=== PATIENT | male | born 1955 | race Caucasian/White ===

== ENCOUNTER → 2019-10-29 12:22 | Outpatient (CLI) | payer MEDICARE, OTHER, SELFPAY ==
--- NOTE | 2019-10-29 | DI.MRI.S_ITS ---
PROCEDURE: MR SHOULDER RT WO CON INDICATIONS: R/O rotator cuff tears TECHNIQUE: Noncontrast oblique coronal T2 fast spin echo with fat saturation, oblique sagittal T1 spin echo and T2 fast spin echo with fat saturation, axial T1 spin echo and T2 fast spin echo with fat saturation through the shoulder. COMPARISON: [facility], CR, XR SHOULDER 2+ VIEWS BILATERAL, 10/02/2017, 10:05. FINDINGS: Image quality: Diagnostic. Rotator cuff: The supraspinatus tendon is completely torn. The transverse portion of this tear measures at least 3.7 cm in transverse dimension with retraction of the torn tendon fragments to the acromioclavicular joint level by approximately 4.2 cm. There is prominent increased signal and thickening involving the infraspinatus and subscapularis tendons with low to moderate grade partial-thickness tearing. The teres minor tendon is intact. There is prominent supraspinatus atrophy. Moderate infraspinatus and subscapularis muscle atrophy is present. The teres minor muscle is unremarkable. Bones and bursae: No acute fracture or dislocation is identified involving the osseous structures of the right shoulder. There are mild degenerative changes of the glenohumeral joint. Severe degenerative changes of the acromioclavicular joint are present. There is a glenohumeral joint effusion with fluid extending into the subacromial subdeltoid bursa. Capsule and soft tissues: Evaluation of the labrum and the glenohumeral ligaments is suboptimal without intra-articular contrast. However, there is increased signal identified along the superior aspect of the labrum with the tear that extends from the 10 o'clock position to the 2 o'clock position. No large paralabral cysts are evident. The lung head of the biceps tendon is thickened and edematous at the biceps anchor with probable intrasubstance partial thickness tearing. No acute injuries are suspected involving the glenohumeral ligaments. There is increased signal about the rotator capsule. There is increased signal identified involving the lateral margin of the proximal deltoid muscle with fluid extending along the myotendinous junction within this region. IMPRESSION: 1. Complete supraspinatus tendon tear. 2. The moderate grade partial-thickness tearing and prominent tendinopathy of the subscapularis and infraspinatus tendons. 3. Rotator cuff muscle atrophy. 4. Small to moderate-sized superior labral tear probably involves the biceps anchor. 5. Moderate tendinopathy with probable intrasubstance partial thickness tearing involving the intra-articular portion of the biceps tendon. 6. Edema about the glenohumeral joint capsule is nonspecific, but may be seen in the setting of adhesive capsulitis. 7. Deltoid muscle strain and possible intramuscular partial-thickness tear. 8. A glenohumeral joint effusion. 9. Advanced degenerative changes of the acromioclavicular joint. Dictated by: Rodríguez Juárez M.D. on 10/31/2019 at 15:11 Approved by: Rodríguez Juárez M.D. on 10/31/2019 at 15:15
--- NOTE | 2019-10-29 | DI.MRI.S_ITS ---
PROCEDURE: MR SHOULDER LT WO CON INDICATIONS: R/O rotator cuff tears TECHNIQUE: Noncontrast oblique coronal T2 fast spin echo with fat saturation, oblique sagittal T1 spin echo and T2 fast spin echo with fat saturation, axial T1 spin echo and T2 fast spin echo with fat saturation through the shoulder. COMPARISON: None. FINDINGS: Image quality: Excellent. Rotator cuff: There is mild diffuse T2 signal elevation throughout the supraspinatus tendon at the humeral insertion site. There is a superimposed low-grade partial-thickness intrasubstance tear of the anterior supraspinatus tendon at the humeral insertion site. There is a superimposed full-thickness pinhole tear of the mid supraspinatus tendon at the humeral insertion site measuring roughly 2 mm diameter. There is high-grade fluid signal intensity within the articular surface of the anterior, middle, and posterior precipitous tendon at the humeral insertion site extend into the muscle tendinous junction, indicating high-grade partial thickness articular surface tearing. Subscapularis and teres minor tendons are intact. The supraspinatus, infraspinatus, and subscapularis tendons appear intact throughout. Sagittal images demonstrate mild supraspinatus muscle atrophy. Bones and bursae: No bone marrow contusions or fractures. No acromioclavicular joint degeneration. The acromion demonstrates conventional anatomy, without an os acromiale. No pathologic subacromial-subdeltoid or subcoracoid bursal fluid is present. Capsule and soft tissues: Linear high T2 signal intensity traverses the posterior superior glenoid labrum. The long head of the biceps tendon demonstrates normal location and morphology. The rotator interval appears normal, without fibrosis. The coracohumeral ligament is normal in thickness. IMPRESSION: 1. Supraspinatus and infraspinatus tendinopathy. 2. Full-thickness pinhole tear of the mid supraspinatus tendon at the humeral insertion site. 3. High-grade partial thickness articular surface tearing of the entire infraspinatus tendon at the humeral insertion site extending to the musculotendinous junction. Mild supraspinatous atrophy. 4. Posterior superior glenoid labral tearing. 5. Acromioclavicular joint osteoarthritis. Dictated by: Makayla Velasco M.D. on 10/31/2019 at 9:50 Approved by: Makayla Velasco M.D. on 10/31/2019 at 9:54
== END ==
PROVIDERS: PCP Internal Medicine Cardiovascular Disease; Referring Provider Orthopaedic Surgery; Visit Provider Orthopaedic Surgery
DX: M75.40 Impingement syndrome of unspecified shoulder (principal); M75.112 Incomplete rotator cuff tear or rupture of left shoulder, not specified as traumatic; M75.121 Complete rotator cuff tear or rupture of right shoulder, not specified as traumatic; S43.432A Superior glenoid labrum lesion of left shoulder, initial encounter; S43.431A Superior glenoid labrum lesion of right shoulder, initial encounter; S46.811A Strain of other muscles, fascia and tendons at shoulder and upper arm level, right arm, initial encounter; M25.411 Effusion, right shoulder; M19.012 Primary osteoarthritis, left shoulder
CPT/HCPCS: 73221

== ENCOUNTER → 2020-12-24 13:15 | Outpatient (CLI) | payer MEDICARE, OTHER, SELFPAY ==
--- NOTE | 2020-12-24 | DI.MRI.S_ITS ---
PROCEDURE: MR SHOULDER RT WO CON INDICATIONS: Unspecified disorder of synovium and tendon, right TECHNIQUE: Noncontrast oblique coronal T2 fast spin echo with fat saturation, oblique sagittal T1 spin echo and T2 fast spin echo with fat saturation, axial T1 spin echo and T2 fast spin echo with fat saturation through the shoulder. COMPARISON: [facility], MR, MR SHOULDER RT WO CON, 10/29/2019, 13:06. FINDINGS: Image quality: Excellent. Rotator cuff: There is full-thickness rupture of distal supraspinatus and infraspinatus at their insertion on humeral head with up to 4.7 centimeter medial retraction of torn tendon fibers to the level of glenoid. Tendinosis and low to moderate grade partial-thickness tear involving distal subscapularis is seen. Sagittal images demonstrate moderate to severe supraspinatus and infraspinatus muscle atrophy. Bones and bursae: No bone marrow contusions or fractures. Moderate osteoarthritic changes are noted in acromioclavicular joint and glenohumeral joint. Large amount of subacromial subdeltoid bursal fluid is seen. No gross intra-articular loose body. Capsule and soft tissues: There is suggestion of focal superior anterior labral tear at 12 to 1 o'clock position. Degenerative changes in inferior labrum is seen without definite focal inferior labral tear. The long head of the biceps tendon demonstrates normal location and morphology. The rotator interval appears normal, without fibrosis. The coracohumeral ligament is normal in thickness. IMPRESSION: 1. Full-thickness rupture of distal supraspinatus and infraspinatus at their insertion on the humeral head with up to 4.7 cm medial retraction of torn tendon fibers to the level of the glenoid. Moderate to severe supraspinatus and infraspinatus muscle atrophy. Tendinosis and low to moderate grade intrasubstance partial-thickness tear involving distal subscapularis. 2. Moderate acromioclavicular joint and glenohumeral joint osteoarthritis. Moderate to large amount of joint effusion and subacromial subdeltoid bursal fluid. 3. Suggestion of focal superior anterior labral tear at 12 to 1 o'clock position. Degenerative changes throughout inferior labrum. Dictated by: Kwabena Rogers M.D. on 12/24/2020 at 14:52 Approved by: Kwabena Rogers M.D. on 12/24/2020 at 14:58
== END ==
PROVIDERS: PCP Family Medicine; Referring Provider Orthopaedic Surgery; Visit Provider Orthopaedic Surgery
DX: M75.121 Complete rotator cuff tear or rupture of right shoulder, not specified as traumatic (principal); M19.011 Primary osteoarthritis, right shoulder; M25.411 Effusion, right shoulder
CPT/HCPCS: 73221

== ENCOUNTER → 2021-09-02 09:40 | Outpatient (CLI) | payer MEDICARE, OTHER, SELFPAY ==
[2021-09-02 10:15] LABS: Add Manual Diff / Slide Review NO; Basophils Absolute Auto 100 /uL (0-100); Basophils Percent Auto 1.2 % (0-2); Eosinophils Absolute Auto 300 /uL (0-450); Eosinophils Percent Auto 5.9 % (2-4); Hematocrit 44.4 % (41-53); Hemoglobin 15.5 g/dL (13.5-17.5); Lymphocytes Absolute Auto 2400 /uL (1100-4500); Lymphocytes Percent Auto 42.1 % (25-40); Mean Corpuscular Hemoglobin 34.1 PG (26-34); Mean Corpuscular Volume 97.4 fL (80-100); Monocytes Absolute Auto 500 /uL (0-900); Monocytes Percent Auto 9.7 % (3-14); Neutrophils Absolute Auto 2300 /uL (1500-7000); Neutrophils Percent Auto 41.1 % (50-75); Platelet Count 186 X10^3/uL (150-400); Red Blood Cell Count 4.56 X10^6/uL (4.5-5.9); Red Cell Distribution Width 13.3 % (11.6-14.8); White Blood Cell Count 5.6 X10^3/uL (4.5-11.0)
[2021-09-02 10:47] LABS: Hemoglobin A1C% w Est Avg Glu 5.7 % (4.0-6.0)
[2021-09-02 11:10] LABS: Blood Urea Nitrogen 15 mg/dL (9-20); Calcium 9.9 mg/dL (8.4-10.2); Carbon Dioxide 29 mmol/L (22-32); Chloride 105 mmol/L (98-107); Estimated Glomerular Filt Rate > 60.0 mL/min (>60); Glucose 116 mg/dL (80-110); HEMOLYSIS < 15 (0-50); Sodium 141 mmol/L (137-145)
== END ==
PROVIDERS: PCP Family Medicine; Referring Provider Orthopaedic Surgery; Visit Provider Orthopaedic Surgery
DX: Z01.818 Encounter for other preprocedural examination (principal); R73.9 Hyperglycemia, unspecified; M25.562 Pain in left knee
CPT/HCPCS: 36415; 80048; 83036; 85025; 93005; 93010

== ENCOUNTER → 2021-09-20 09:25 | Outpatient (CLI) | payer MEDICARE, OTHER, SELFPAY ==
[2021-09-20 11:56] LABS: COVID19 -Nasal RAPID Negative (Negative)
== END ==
PROVIDERS: PCP Family Medicine; Visit Provider Physician Assistant
DX: Z01.812 Encounter for preprocedural laboratory examination (principal); Z20.822 Contact with and (suspected) exposure to COVID-19
CPT/HCPCS: 87635; C9803

== ENCOUNTER → 2021-10-02 09:25 | Outpatient (CLI) | payer MEDICARE, OTHER, SELFPAY ==
[2021-10-02 12:53] LABS: COVID19 -Nasal RAPID Negative (Negative)
== END ==
PROVIDERS: PCP Family Medicine; Visit Provider Nurse Practitioner Family
DX: Z01.812 Encounter for preprocedural laboratory examination (principal); Z20.822 Contact with and (suspected) exposure to COVID-19
CPT/HCPCS: 87635; C9803

== ENCOUNTER 2021-10-04 05:47 | Day surgery (SDC) | payer MEDICARE, OTHER, SELFPAY ==
[2021-09-16 09:57] VITALS: BMI 33.3
--- NOTE | 2021-09-23 11:05 | SUR.PREOP ---
Due to HVAC issues and the late timing of events, Pt has decided to cancel his procedure and will be rescheduled at a later date by Dr Theo hanna.
[2021-10-04] VITALS (16 sets, daily range): BP systolic 103–141; BP diastolic 58–89; PULSE 67–100; RESP 11–20; TEMP 36–37.3; O2SAT 87–97; BMI 33.3
--- NOTE | 2021-10-04 07:43 | PM.PREOP ---
Pre-operative Note COVID-19 COVID-19 status: Negative Result date/Date tested (Pos, Neg/Pending): 10/02/21 Interval Note History & Physical reviewed/Exam performed by Physician: Yes Changes to H&P: No
[2021-10-04] MEDS: LACTATED RINGERS 1,000 ML 42 ML IV ×2 (07:44→10:08)
[2021-10-04] MEDS: CELECOXIB 200 MG CAPSULE PO (07:48)
[2021-10-04] MEDS: ACETAMINOPHEN 325 MG TABLET 975 MG PO (07:48)
[2021-10-04] MEDS: TRANEXAMIC ACID 1,000 MG VIAL 2000 MG INJ ×2 (08:15→09:18)
[2021-10-04] MEDS: CEFAZOLIN 2 GM/20 ML SYRINGE IV (08:16)
--- NOTE | 2021-10-04 08:31 | SUR.OPER ---
Supine on padded OR bed. Pillow under head, arms secured on padded armboards <90 degree abduction. Safety belt across torso. Non-operative leg secured with tape over blanket over lower leg. Operative leg secured in DeMayo/Aly/Nathe positioner. Foam padded brace at thigh of operative leg.
[2021-10-04] MEDS: BUPIVACAINE LIPOSOME 266 MG/20 ML VIAL INJ (08:41)
[2021-10-04] MEDS: MORPHINE 4 MG/ML INJ INJ (08:42)
[2021-10-04] MEDS: BUPIVACAINE 0.25% (PF) 30 ML, EPINEPHrine 0.15 MG INJ (08:43)
--- NOTE | 2021-10-04 09:56 | DI.RAD.S_ITS ---
PROCEDURE: XR KNEE LT 1TO2V INDICATIONS: post op total knee TECHNIQUE: Two views of the knee acquired. COMPARISON: [facility], XR KNEE ARTHRITIC SERIES LT, 05/27/2021, 15:24. FINDINGS: Bones: Patient is status post knee joint arthroplasty. Hardware components are in expected positions. Visualized bony structures are intact. Soft tissues: Overlying postoperative changes are noted. IMPRESSION: Status post left total knee arthroplasty with expected postoperative findings. Dictated by: David Casey M.D. on 10/04/2021 at 10:41 Approved by: David aCsey M.D. on 10/04/2021 at 10:41
--- NOTE | 2021-10-04 09:57 | PM.DS.1 ---
History of Present Illness History of Present Illness Chief complaint: LT TKA *OPB* Discharge Providers Provider Primary care physician: Kip Christopher DO Consults: 09/23/21 06:55 Consult to Anesthesiology Routine Comment: Consulting Provider: Anesthesiologist Reason for consultation: Regional block for post operative pain control 10/04/21 09:23 Consult to Respiratory Therapy Evaluate & Treat Comment: 65 y/o s/p TKA. GERARDO+CPAP, HTN, BMI 33 Physician Instructions: Evaluate and treat Discharge provider: Atul Venegas MD Exam Vital Signs (past 8 hours): - 10/04/21 07:24 Temperature 97.3 F L Pulse Rate 67 Respiratory Rate 16 Blood Pressure 141/89 H Pulse Oximetry 97 Oxygen Delivery Method Room Air [facility] Medical History (Updated 09/16/21 @ 10:42 by Ava Hdz, RN) Anxiety Arthritis Chest pain Chronic shortness of breath DDD (degenerative disc disease) Depression (04/2020) GERD (gastroesophageal reflux disease) HLD (hyperlipidemia) HTN (hypertension) Hyperactive Kidney stones OCD (obsessive compulsive disorder) GERARDO on CPAP Osteoarthritis Seasonal allergies Surgical History (Updated 09/16/21 @ 10:28 by Ava Hdz, RN) History of arthroscopy of left shoulder History of arthroscopy of right shoulder History of esophagogastroduodenoscopy (EGD) History of surgery History of total left hip replacement (~2009) Hx of colonoscopy Hx of hernia repair Status post right partial knee replacement (~2017) Social History household members: children Smoking Status: Former smoker alcohol intake: former Discharge Plan Discharge orders & Medications Prescriptions: No Action metoprolol succinate 50 mg Tablet Extended Release 24 Hr 50 mg PO DAILY 0RF hydrocodone-acetaminophen 5-325 mg Tablet 1 tab PO TID PRN (Reason: Pain) 0RF ibuprofen 200 mg Capsule 400 mg PO DAILY PRN (Reason: Pain) 0RF paroxetine HCl 40 mg Tablet 40 mg PO DAILY 0RF esomeprazole magnesium [Nexium] 20 mg Capsule,Delayed Release(Dr/Ec) 20 mg PO DAILY 0RF cholestyramine (with sugar) 4 gram Powder In Packet 4 g PO DAILY 0RF Rx Instructions: administer w/meal; avoid other meds within 1hr before or 4-6hr after dose Follow up/Referrals: Kip Christopher DO [Primary Care Provider] - Discharge Data Primary Care Provider: Kip Christopher Attending Provider: Atul Venegas
--- NOTE | 2021-10-04 09:57 | PM.OP.1 ---
Operative Date/Time/Diagnoses Date of procedure: 10/04/21 Time of procedure: 09:57 Pre-op diagnosis: Left knee osteoarthritis Post-op diagnosis: same Procedure & Clinicians Procedure: Left total knee replacement Same procedure as scheduled: Yes Indications: The patient has had progressively worsening left knee pain with radiographic changes consistent with arthritis. Non-operative management has failed and the patient has requested total knee replacement. The risks, benefits and alternatives to surgery were discussed with the patient prior to proceeding. Risks discussed included, but were not limited to, failure to relieve pain, stiffness, infection, nerve damage, deep venous thrombosis, pulmonary embolism, stroke, coma, heart attack, permanent paralysis and , as well as the potential need for eventual revision of the prosthetic. Surgeon: Atul Venegas Tattoo And Body Artist: Allison Unger Click Yes if Unassisted: No Anesthesia Type: General, Spinal and Local Operative Notes Findings: Significant medial compartment osteoarthritis with mild patellofemoral joint degenerative change Closure Type: primary Specimen(s): none sent Prosthetic devices, grafts, tissues, transplants, or devices: Implants used in this procedure were manufactured by the [employer] and included the BCS II Journey total knee replacement with a size 7 left Hock Oxinium femoral component, size 7 left non porous tibial base plate, a 9 mm cross-linked polyethylene tibial insert, and a 35 mm oval Shabnam II patellar component. Applied: implant(s) Estimated Blood Loss (mL): 25 Blood products transfused: none Tourniquet time (min): 48 Procedure in detail: The patient was seen in the pre-operative area, where the left knee was identified as the operative site and this was marked with my initials. The patient received pre-operative antibiotics, and was taken to the operating room and placed on the operative table in the supine position. After satisfactory anesthesia, a aircraft time clerk out was performed. The left leg was encircled with a tourniquet about the proximal thigh, and the leg was prepared from the toes to the tourniquet with ChloroPrep in the usual fashion and draped through sterile drapes. The leg was elevated and exsanguinated with Eschmark bandage and the tourniquet inflated to 250 mmHg pressure. The knee was approached through an approximately 18 cm incision centered over the patella and carried into the knee through a medial parapatellar arthrotomy. The anterior osteophytes and soft tissues were removed. The rotational landmarks of [place]'s line and the transepicondylar axis were marked on the femur with electrocautery, and intramedullary guide holes for the femur and tibia were created. The distal femoral cut was made in 6 degrees of valgus using the intramedullary guide at the primary cut setting. The proximal tibial cut was then made using the intramedullary guide, taking 9 mm of bone off the less involved side. The extension gap was checked and the rotation of the femoral component confirmed with the gap balancing blocks. The anterior, posterior and chamfer cuts were then made. The posterior osteophytes and soft tissues were then removed. The posterior capsule was injected with part of a mixture of 60 ml 0.25% Marcaine mixed with 20 ml Exparel and 4 mg of morphine for post-operative pain control. The remainder of this mixture was injected into the capsule and subcutaneous tissues during cement curing. The tibia was prepared with the rotation set by an extra medullary guide. Trial tibial and femoral components were then placed and the intercondylar notch cut through the femoral trial. Range of motion was 0-135 degrees, with good stability throughout the range. The patella was then cut to accommodate the patellar prosthetic. There was no need for a lateral release. The trials were then removed, and the femoral hole plugged with a bone plug. The bone was prepared with pulsatile lavage, and dried with a sponge. Cement was applied and the final prosthetics placed. Excess cement was removed during and after cement curing. After confirming there was no extruded cement posteriorly, the final tibial insert was placed. The knee was copiously irrigated and the tourniquet deflated. Hemostasis was obtained. The capsule was closed with interrupted # 2 polyester sutures. The subcutaneous layer was closed with 3-0 Vicryl, and the skin with a running 3-0 V-Lock suture and Dermabond. An Aquacel Ag dressing was applied and the patient was taken to recovery having tolerated the procedure well. Complications: none Post-operative Condition: stable Disposition: PACU Plan for aftercare: The patient will be maintained on a standard total knee replacement protocol with weight bearing as tolerated. The patient will receive aspirin and sequential compression devices for DVT prophylaxis. The patient will be discharged home when safe for the home environment.
[2021-10-04] MEDS: HYDROMORPHONE 2 MG INJ IV ×3 (10:05→10:27)
[2021-10-04] MEDS: OXYCODONE IR 5 MG TABLET PO ×2 (10:06→10:29)
[2021-10-04] MEDS: hydrOXYzine 50 MG/ML INJ 25 MG IM (10:06)
--- NOTE | 2021-10-04 10:24 | SUR.PHASEI ---
Patient continues to c/o left knee pain, 05/07; medicated as appropriate. Explained to patient that he would not be pain free today;
--- NOTE | 2021-10-04 10:33 | SUR.PHASEI ---
Placed pillow under left knee for comfort.
[2021-10-04] MEDS: HYDROMORPHONE 0.5 MG INJ 0.2 MG IV ×3 (11:23→18:00)
[2021-10-04] MEDS: hydrOXYzine pamoate 25 MG CAPSULE PO ×3 (11:24→20:35)
[2021-10-04] MEDS: HYDROMORPHONE 2 MG TABLET PO ×3 (11:35→18:01)
[2021-10-04] MEDS: LACTATED RINGERS 1,000 ML 100 ML IV ×2 (11:39→22:29)
--- NOTE | 2021-10-04 14:21 | PT-IP ANOTE ---
PT order received before noon--pt post-op left TKA this a.m. PT checks on pt who is lethargic and when he tries to shift left leg in the bed, left knee pain is high. PT and pt decide it is best to defer eval until the a.m. to manage pain and allow most activity with PT to prepare for d/c.
[2021-10-04] MEDS: ACETAMINOPHEN 325 MG TABLET 650 MG PO ×2 (15:14→20:34)
[2021-10-04] MEDS: IBUPROFEN 400 MG TABLET PO ×3 (15:47→22:29)
[2021-10-04] MEDS: OXYCODONE IR 10 MG TABLET PO ×2 (15:58→20:33)
--- NOTE | 2021-10-04 19:42 | PC.NURSE ---
Pt arrived from PACU at 1130. He is A&Ox3. VSS< afebrile on 3 L NC. He c/o severe pain initially requesting medications for 9/10 pain q 2-3 hours. Pt able to void this evening, tolerating po well w/o n/v. LR @100ml/hr. SANTOS wrap C/D/I. Encouraged to use IS and reposition q 2 hours. PT will reassess in a.m. as PT in severe discomfort this afternoon, then napping. Patient appears to be much more comfortable this evening.Continuous monitoring.
[2021-10-04] MEDS: DOCUSATE 100 MG CAPSULE PO (20:35)
[2021-10-04] MEDS: ASPIRIN EC 81 MG TABLET PO (22:29)
[2021-10-05 00:27] VITALS: BP 142/63; PULSE 95; RESP 22; TEMP 36.8; O2SAT 96
[2021-10-05] MEDS: IBUPROFEN 400 MG TABLET PO ×3 (01:29→08:16)
[2021-10-05] MEDS: hydrOXYzine pamoate 25 MG CAPSULE PO ×3 (01:29→10:07)
[2021-10-05] MEDS: OXYCODONE IR 5 MG TABLET PO ×2 (01:29→06:02)
[2021-10-05 03:35] VITALS: BP 111/59; PULSE 93; RESP 20; TEMP 36.6; O2SAT 94
[2021-10-05] MEDS: PANTOPRAZOLE DR 20 MG TABLET PO (06:02)
[2021-10-05 06:33] LABS: Hematocrit 36.1 % (41-53); Hemoglobin 12.4 g/dL (13.5-17.5)
[2021-10-05 08:00] VITALS: BP 119/63; PULSE 76; RESP 18; TEMP 37.1; O2SAT 95
[2021-10-05] MEDS: ACETAMINOPHEN 325 MG TABLET 650 MG PO (08:15)
[2021-10-05 08:16] VITALS: BP 119/63; PULSE 76
[2021-10-05] MEDS: METOPROLOL ER 50 MG TABLET PO (08:16)
[2021-10-05] MEDS: DOCUSATE 100 MG CAPSULE PO (08:16)
[2021-10-05] MEDS: CHOLESTYRAMINE/ASPARTAME 4 GM PACK PO (08:16)
[2021-10-05] MEDS: ASPIRIN EC 81 MG TABLET PO (08:16)
[2021-10-05] MEDS: OXYCODONE IR 10 MG TABLET PO (08:17)
[2021-10-05] MEDS: PARoxetine 20 MG TABLET 40 MG PO (08:17)
--- NOTE | 2021-10-05 08:39 | PM.PNPO.1 ---
Subjective Subjective Interval history: Luis is POD#1 s/p L TKA. States pain is 4-5/10 at rest, higher if he tries to move. He also has right shoulder pain and limited mobility that will be treated surgically in the future. Good appetite, no N/V, no difficulty urinating. His oldest daughter is a firearms model maker and will be his caregiver on discharge. He was initially hesitant to discharge when I saw him this morning, but after working with PT feels better and more confident and would very much like to go home. Exam Vital Signs (past 8 hours): - 10/05/21 03:35 10/05/21 08:16 Temperature 97.8 F Pulse Rate 93 H 76 Respiratory Rate 20 Blood Pressure 111/59 L 119/63 Pulse Oximetry 94 Oxygen Delivery Method Nasal Cannula Oxygen Flow Rate 3 Narrative Exam Narrative: SCDs are in place, ice pack to left knee. Left ankle dorsiflexion and plantarflexion 5/5, quadriceps 4/5, limited by pain. Sensation to light touch intact throughout LLE Const General: cooperative, healthy appearing and comfortable Orientation: alert, awake and oriented x3 Resp Effort & Inspection: normal respiratory effort and able to speak in complete sentences Objective Labs Result Diagrams: 10/05/21 06:00 Labs: Laboratory Results - last 24 hr 10/05/21 06:00 Hgb 12.4 L Hct 36.1 L PFSH Medical History (Updated 10/05/21 @ 08:51 by Leyla Sparrow PA-C) Anxiety Arthritis Chest pain Chronic shortness of breath DDD (degenerative disc disease) Depression (04/2020) GERD (gastroesophageal reflux disease) HLD (hyperlipidemia) HTN (hypertension) Hyperactive Kidney stones OCD (obsessive compulsive disorder) GERARDO on CPAP Osteoarthritis Seasonal allergies Surgical History (Updated 10/05/21 @ 08:51 by Leyla Sparrow PA-C) History of arthroscopy of left shoulder History of arthroscopy of right shoulder History of esophagogastroduodenoscopy (EGD) History of surgery History of total left hip replacement (~2009) Hx of colonoscopy Hx of hernia repair Status post right partial knee replacement (~2017) Social History household members: family and children Smoking Status: Former smoker alcohol intake: former Assessment & Plan Post-op Assessment and plan (1) Status post total knee replacement, left: (2) Acute postoperative anemia due to expected blood loss: (3) Obesity (BMI 30.0-34.9): Postoperative Procedures: Procedures Operation Date: 10/04/21 07:45 Actual Procedure Side Surgeon p Total Knee Arthroplasty Left Atul Venegas MD Postoperative day: 1 Postoperative status: doing well Postoperative plan: discharge Quality VTE Deep Vein Thrombosis/Pulmonary Embolism Present on Admission: No
--- NOTE | 2021-10-05 09:42 | PT.IIE ---
Current Diagnoses Unilateral primary osteoarthritis, left knee (10/04/21) Surgery Performed Operation Date: 10/04/21 07:45 Actual Procedures p Total Knee Arthroplasty(Left) - Atul Venegas MD Medical History (Last Updated 09/16/21 @ 10:42 by Ava Hdz RN) Anxiety Arthritis Chest pain Chronic shortness of breath DDD (degenerative disc disease) Depression (04/2020) GERD (gastroesophageal reflux disease) HLD (hyperlipidemia) HTN (hypertension) Hyperactive Kidney stones OCD (obsessive compulsive disorder) GERARDO on CPAP Osteoarthritis Seasonal allergies Physical Therapy Inpatient Evaluation/Re-Eval M1 PT/OT-IP Prior Functional Status Start: 10/04/21 14:13 Freq: Status: Active Protocol: Document 10/05/21 08:40 MB (Rec: 10/05/21 09:42 MB [id number]) Medical Review Prior Functional Status Medical History Reviewed Yes Diet/Fluid Consistency Regular Communication Communicates needs Mobility and Gait I Activities of Daily Living and IADL's I Prior Functional Level (Other details) I Social History Household Members family,children Living Arrangements House Number of Floors (Floors) One Floor Number of Stairs To Enter/Railing? Ramp to enter Home Environment Standard Height Toilet,Walk in Shower,Built-In Shower Seat, Ramp Home Equipment Front Wheel Walker,Straight Cane Employment Status Retired Additional Social History Comment Pt lives in his house with his hakeemugher, OSCAR and grandchildren. They have 5 large dogs. His daughter recently fractured her ankle and is getting around in a w/c and knee scooter. His OSCAR is on FMLA and is helping family. Pt's other daughter has come to stay for a few days and will pick him up today. He has a cryocuff at home. M2 PT-IP Current Condition Start: 10/04/21 14:13 Freq: Status: Active Protocol: Document 10/05/21 08:40 MB (Rec: 10/05/21 09:42 MB [id number]) Physical Therapy Current Condition Current Condition Evaluation Date 10/05/21 Treatment Diagnosis Decreased mobility s/p left TKA Onset Date 10/04/21 M3 PT-IP Subjective Start: 10/04/21 14:13 Freq: Status: Active Protocol: Document 10/05/21 08:40 MB (Rec: 10/05/21 09:42 MB [id number]) Subjective Physical Therapy Visit Type Type Initial Evaluation Visit Start Time 08:40 Visit Stop Time 09:12 Total Visit Minutes 32 Number of MOLD SHOP SUPERVISOR Visits 0 Physical Therapy Visit Comments Patient Comments Pt reports that he is concerned about pain. Patient Goals To go home Therapy Pain Assessment Pain When Pain Assessed Rest & mob Pain Present Pain Present Pain Reported Location Right shoulder Intensity 0 Scale Used Numeric (0 - 10) Pain Behaviors Guarding Pain Management Techniques Modification of Treatment,Re- positioning Left knee Intensity 4 Scale Used Numeric (0 - 10) Description Sharp Pain Behaviors Facial Grimacing,Guarding, Holding Area Pain Management Techniques Apply Cold,Distraction, Elevation,Re-positioning M4 PT-IP Mobility and Gait Start: 10/04/21 14:13 Freq: Status: Active Protocol: Document 10/05/21 08:40 MB (Rec: 10/05/21 09:42 MB [id number]) PT-Bed Mobility Assessment Supine to Sit Supine to Sit Contact Guard Assistance,1 Person Assistance,Head of Bed Elevated,Bedrails Scooting Scooting to Edge of Bed Contact Guard Assistance PT-Transfer Assessment Sit to and From Stand Sit to and from Stand Standby Assistance,1 Person Assistance,Use of Upper Extremities Equipment Transfer Assistive Device Gait Belt,Front Wheeled Walker Orthotic/Prosthetic Devices or Brace: No Comments Mobility Comments Pt requires encouragement to use his hands to help scoot his left leg to the side in the bed to get to EOB and to scoot out to the EOB. Cues to push up from the bed with his right hand and only rest left hand on the RW. Juan A from PT to help don his boxer briefs. Pt with guarding behavior LLE. Gait Assessment Gait Gait Assistance Required: Standby Assistance,Contact Guard Assist Distance (Feet) 100 Able to Maintain Weight Bearing Status Yes During Gait Assistive Devices Assistive Device Gait Belt,Front Wheeled Walker Orthotic/Prosthetic Devices or Brace: No Gait Deviations General Gait Pattern Antalgic,Decreased Stride Length,Decreased Feet Clearance,Flexed Trunk,Step-to Gait Factors Limiting Gait Function Factors Limiting Gait Function Decreased Activity Tolerance, Decreased Strength,Limited Range of Motion,Pain,Poor Balance Comments Gait Comments Pt tends to gait train NWB and then TDWB LLE for first 25' of gait with RW and cues to improve WB to help with left knee ROM and gait performance and safety. He does make improvements with WB and stepping with increased time and cues and is finally able to perform step-to gait pattern. He has heavy use of UEs on walker and his gait is slow. He denies right shoulder pain with heavy use of arms on walker. Stair Climbing Assessment Comments Stair Climbing Comments Pt states he will use his ramp when he gets home PT-Balance Assessment Sitting Balance and Reactions Static Sitting Balance Ability Fair Dynamic Sitting Balance Ability Fair Standing Balance and Reactions Static Standing Balance Ability Fair Dynamic Standing Balance Ability Fair Device Used Heavy UE support sitting EOB and once up to walker M5 PT-IP Objective Assessments Start: 10/04/21 14:13 Freq: Status: Active Protocol: Document 10/05/21 08:40 MB (Rec: 10/05/21 09:42 MB [id number]) Orientation Orientation/Cognition Level of Alertness Alert Orientation Name,Age,Birthday,Month,Date, Year,Day of Week,Place, Situation Language Function Ability No Deficits Noted Safety Awareness Understands Safety Issues Memory Description No Deficits Noted Gross Range of Motion Upper Extremity ROM Assessment Right Impaired Impairments Pt reports need for right shoulder surgery and he self- limits right shoulder range Lower Extremity ROM Assessment Left Impaired Impairments Post-op left knee ROM in supine: 30-40 deg: increased pain and little tolerance to HS this morning Strength Upper Extremity Strength Assessment Right Impaired Lower Extremity Strength Assessment Left Impaired Comments Strength Comments Deferred MMT right UE and LLE d/t pain--left UE and right LE WFLs Other Assessments Other Other Assessments Edema LLE post-op M6 PT-IP Treatment Start: 10/04/21 14:13 Freq: Status: Active Protocol: Document 10/05/21 08:40 MB (Rec: 10/05/21 09:42 MB [id number]) Physical Therapy Treatment Exercises Exercises Ankle Pumps,Quad Sets,Heel Slides Education Education Provided Weight Bearing Status,Post-Op Packet,Safety Brace Education Patient M7 PT-IP Assessment and Plan Start: 10/04/21 14:13 Freq: Status: Active Protocol: Document 10/05/21 08:40 MB (Rec: 10/05/21 09:42 MB [id number]) PT Summary Assessment and Plan Potential Rehabilitation Potential Good Status of Condition at Evaluation Stable Summary Impairments Pain,ROM,Strength,Balance,Bed Mobility,Transfers,Gait, Activity Tolerance Assessment Summary Pt is a 65 y/o male presenting with decreased left knee ROM, LE strength, gait and mobility s/p left TKR last date. Pt has a history of right shoulder pain and states that he needs surgery for it as well. His right shoulder does not limit mobility. He is hesitant with mobility and gait and does show improvement with gait pattern after being cued by PT and with practice. He feels ready to d/c home with daughter picking him up today. Will put him on for one more PT treatment but PT feels he does not need to stay in the hospital for it. He has his home and OPPT plan set . He has good support at d/c and needed DME. Goals Bed Mobility Goal Independent Transfer Goal Independent,Front Wheeled Walker Gait Goal Independent,Front Wheel Walker Gait Distance 150 Days to Meet Goals 2 Frequency of Treatment Frequency Of Treatment Twice a Day Treatment Plan Physical Therapy Treatment Plan Bed Mobility Training,Transfer Training,Gait Training, Therapeutic Exercise,Balance Retraining,Post Op Education, Discharge Planning,Hot or Cold Pack,Neuromuscular Re-ed Other Recommendations and Next Treatment Reassess left knee flexion and Focus extension, ensure I with bed flat and no rail bed mobility, transfers and gait with RW Weight Bearing Status Weight Bearing Status Weight Bear as Tolerated Recommendations To Nursing Amount of Assist Needed Standby Assistance,1 Person Assist Discharge Recommendations PT Discharge Recommendations Home with 20/04 Assist Available,Outpatient PT Transportation Needs at Discharge Private Vehicle
--- NOTE | 2021-10-05 09:43 | PM.DS.1 ---
History of Present Illness History of Present Illness Chief complaint: LT TKA *OPB* Discharge Providers Provider Primary care physician: Kip Christopher DO Consults: 10/04/21 11:13 Consult to Discharge Planning Routine Comment: Consult to Physical Therapy Evaluate & Treat Comment: Physician Instructions: postop TKA protocol Discharge provider: Leyla Sparrow PA-C Exam Vital Signs (past 8 hours): - 10/05/21 03:35 10/05/21 08:00 10/05/21 08:16 Temperature 97.8 F 98.7 F Pulse Rate 93 H 76 76 Respiratory Rate 20 18 Blood Pressure 111/59 L 119/63 119/63 Pulse Oximetry 94 95 Oxygen Delivery Method Room Air,Nasal Cannula Oxygen Flow Rate 3 Objective Labs Result Diagrams: 10/05/21 06:00 Labs: Laboratory Results - last 24 hr 10/05/21 06:00 Hgb 12.4 L Hct 36.1 L PFSH Medical History Anxiety Arthritis Chest pain Chronic shortness of breath DDD (degenerative disc disease) Depression (04/2020) GERD (gastroesophageal reflux disease) HLD (hyperlipidemia) HTN (hypertension) Hyperactive Kidney stones OCD (obsessive compulsive disorder) GERARDO on CPAP Osteoarthritis Seasonal allergies Surgical History History of arthroscopy of left shoulder History of arthroscopy of right shoulder History of esophagogastroduodenoscopy (EGD) History of surgery History of total left hip replacement (~2009) Hx of colonoscopy Hx of hernia repair Status post right partial knee replacement (~2017) Social History household members: family and children Smoking Status: Former smoker alcohol intake: former Discharge Assessment & Plan Assessment and Plan Assessment: Recovery as expected s/p L TKA. Plan of Treatment: Mobilize w/ PT. WB as tolerated with cane/walker. Continue w/ current pain regimen and DVT prophylaxis (Aspirin 81 mg x 6 weeks). Leave Aquacel dressing in place. Discharge Plan Discharge Plan Patient Disposition: Home Discharge orders & Medications Discharge Orders: Discharge (Order); Ordered 10/05/21 Ordered By: Leyla Sparrow Prescriptions: New aspirin 81 mg Tablet,Delayed Release (Dr/Ec) 81 mg PO BID Qty: 90 0RF Rx Instructions: DVT prophylaxis x 6 weeks docusate sodium 100 mg Capsule 100 mg PO BID Qty: 60 0RF oxycodone 5 mg Tablet See Rx Instructions .ROUTE .COMPLEX PRN (Reason: Pain, Moderate (4-6)) Qty: 42 0RF Rx Instructions: 1-2 tablets every 4-6 hours PRN post-op pain hydroxyzine pamoate 25 mg Capsule 25 mg PO Q4HR PRN (Reason: muscle spasm) Qty: 60 0RF acetaminophen 500 mg capsule 500 mg PO Q6H MDD 4000 mg PRN (Reason: pain) Qty: 90 0RF Rx Instructions: 1-2 caps q 6h Continued metoprolol succinate 50 mg Tablet Extended Release 24 Hr 50 mg PO DAILY 0RF ibuprofen 200 mg Capsule 400 mg PO DAILY PRN (Reason: Pain) 0RF paroxetine HCl 40 mg Tablet 40 mg PO DAILY 0RF esomeprazole magnesium [Nexium] 20 mg Capsule,Delayed Release(Dr/Ec) 20 mg PO DAILY 0RF cholestyramine (with sugar) 4 gram Powder In Packet 4 g PO DAILY 0RF Rx Instructions: administer w/meal; avoid other meds within 1hr before or 4-6hr after dose Discontinued hydrocodone-acetaminophen 5-325 mg Tablet 1 tab PO TID PRN (Reason: Pain) 0RF Follow up/Referrals: Kip Christopher DO [Primary Care Provider] - Atul Venegas MD [Physician] - (10-14 days for post-op) Diet/Activity/Treatments Diet: Regular Activity: Weight bearing as tolerated. Start physical therapy on 10/09/2021 as scheduled at [facility]. Cold/Heat Therapy: Ice for 15-20 minutes as needed for pain. Skin/Wound/Dressing Care Report to your healthcare provider any signs of infection, such as:: chills, fever, night sweats, increased pain, unusual drainage and unusual redness Dressing: Ok to shower with Aquacel dressing in place. Do not bathe or otherwise soak incision. Do not remove Aquacel dressing. Call office if it becomes wet inside. Visit Report/Discharge Packet Instructions: DI for Knee Replacement Stand Alone Forms: Surgery Discharge Discharge Data Primary Care Provider: Kip Christopher Attending Provider: Atul Venegas Quality VTE Deep Vein Thrombosis/Pulmonary Embolism Present on Admission: No
--- NOTE | 2021-10-05 10:02 | P.DS_ITS ---
History of Present Illness History of Present Illness Date Patient Seen: 10/05/21 Time Patient Seen: 10:03 Chief complaint: Left knee pain Narrative: Please see progress note from today. Discharge Providers Provider Date of admission: 10/04/2021 Discharge Date: 10/05/21 Primary care physician: Kip Christopher DO Consults: 10/04/21 11:13 Consult to Discharge Planning Routine Comment: Consult to Physical Therapy Evaluate & Treat Comment: Physician Instructions: postop TKA protocol Discharge provider: Leyla Sparrow PA-C Summary Hospital Course Discharge Diagnosis: Left knee osteoarthritis Hospital Course: Operative Date/Time/Diagnoses Date of procedure: 10/04/21 Time of procedure: 09:57 Pre-op diagnosis: Left knee osteoarthritis Post-op diagnosis: same Procedure & Clinicians Procedure: Left total knee replacement Same procedure as scheduled: Yes Indications: The patient has had progressively worsening left knee pain with radiographic changes consistent with arthritis. Non-operative management has failed and the patient has requested total knee replacement. The risks, benefits and alternatives to surgery were discussed with the patient prior to proceeding. Risks discussed included, but were not limited to, failure to relieve pain, stiffness, infection, nerve damage, deep venous thrombosis, pulmonary embolism, stroke, coma, heart attack, permanent paralysis and , as well as the potential need for eventual revision of the prosthetic. Surgeon: Atul Venegas Strike Out Machine Operator: Allison Unger Click Yes if Unassisted: No Anesthesia Type: General, Spinal and Local Operative Notes Findings: Significant medial compartment osteoarthritis with mild patellofemoral joint degenerative change Closure Type: primary Specimen(s): none sent Prosthetic devices, grafts, tissues, transplants, or devices: Implants used in this procedure were manufactured by the [employer] and included the BCS II Journey total knee replacement with a size 7 left Hock Oxinium femoral component, size 7 left non porous tibial base plate, a 9 mm cross-linked polyethylene tibial insert, and a 35 mm oval Shabnam II patellar component. Applied: implant(s) Estimated Blood Loss (mL): 25 Blood products transfused: none Tourniquet time (min): 48 Status at Discharge Cognitive/behavioral status at discharge: oriented Functional status at discharge: uses cane/walker Overall status at discharge: patient is progressing back to baseline Exam Vital Signs (past 8 hours): - 10/05/21 03:35 10/05/21 08:00 10/05/21 08:16 Temperature 97.8 F 98.7 F Pulse Rate 93 H 76 76 Respiratory Rate 20 18 Blood Pressure 111/59 L 119/63 119/63 Pulse Oximetry 94 95 Oxygen Delivery Method Room Air,Nasal Cannula Oxygen Flow Rate 3 Narrative Exam Narrative: Please see progress note from today. Objective Labs Result Diagrams: 10/05/21 06:00 Labs: Laboratory Results - last 24 hr 10/05/21 06:00 Hgb 12.4 L Hct 36.1 L PFSH Medical History Anxiety Arthritis Chest pain Chronic shortness of breath DDD (degenerative disc disease) Depression (04/2020) GERD (gastroesophageal reflux disease) HLD (hyperlipidemia) HTN (hypertension) Hyperactive Kidney stones OCD (obsessive compulsive disorder) GERARDO on CPAP Osteoarthritis Seasonal allergies Surgical History History of arthroscopy of left shoulder History of arthroscopy of right shoulder History of esophagogastroduodenoscopy (EGD) History of surgery History of total left hip replacement (~2009) Hx of colonoscopy Hx of hernia repair Status post right partial knee replacement (~2017) Social History household members: family and children Smoking Status: Former smoker alcohol intake: former Discharge Assessment & Plan Assessment and Plan Assessment: Recovery as expected s/p L TKA. Plan of Treatment: Mobilize w/ PT. WB as tolerated with cane/walker. Continue w/ current pain regimen and DVT prophylaxis (Aspirin 81 mg x 6 weeks). Leave Aquacel dressing in place. Discharge Plan Discharge Plan Patient Disposition: Home Discharge orders & Medications Discharge Orders: Discharge (Order); Ordered 10/05/21 Ordered By: Leyla Sparrow Prescriptions: New aspirin 81 mg Tablet,Delayed Release (Dr/Ec) 81 mg PO BID Qty: 90 0RF Rx Instructions: DVT prophylaxis x 6 weeks docusate sodium 100 mg Capsule 100 mg PO BID Qty: 60 0RF oxycodone 5 mg Tablet See Rx Instructions .ROUTE .COMPLEX PRN (Reason: Pain, Moderate (4-6)) Qty: 42 0RF Rx Instructions: 1-2 tablets every 4-6 hours PRN post-op pain hydroxyzine pamoate 25 mg Capsule 25 mg PO Q4HR PRN (Reason: muscle spasm) Qty: 60 0RF acetaminophen 500 mg capsule 500 mg PO Q6H MDD 4000 mg PRN (Reason: pain) Qty: 90 0RF Rx Instructions: 1-2 caps q 6h Continued metoprolol succinate 50 mg Tablet Extended Release 24 Hr 50 mg PO DAILY 0RF ibuprofen 200 mg Capsule 400 mg PO DAILY PRN (Reason: Pain) 0RF paroxetine HCl 40 mg Tablet 40 mg PO DAILY 0RF esomeprazole magnesium [Nexium] 20 mg Capsule,Delayed Release(Dr/Ec) 20 mg PO DAILY 0RF cholestyramine (with sugar) 4 gram Powder In Packet 4 g PO DAILY 0RF Rx Instructions: administer w/meal; avoid other meds within 1hr before or 4-6hr after dose Discontinued hydrocodone-acetaminophen 5-325 mg Tablet 1 tab PO TID PRN (Reason: Pain) 0RF Follow up/Referrals: Kip Christopher DO [Primary Care Provider] - Atul Venegas MD [Physician] - (10-14 days for post-op) Diet/Activity/Treatments Diet: Regular Activity: Weight bearing as tolerated. Start physical therapy on 10/09/[address] [facility]. Cold/Heat Therapy: Ice for 15-20 minutes as needed for pain. Skin/Wound/Dressing Care Report to your healthcare provider any signs of infection, such as:: chills, fever, night sweats, increased pain, unusual drainage and unusual redness Dressing: Ok to shower with Aquacel dressing in place. Do not bathe or otherwise soak incision. Do not remove Aquacel dressing. Call office if it becomes wet inside. Visit Report/Discharge Packet Instructions: DI for Knee Replacement Stand Alone Forms: Surgery Discharge Discharge Data Primary Care Provider: Kip Christopher Attending Provider: Atul Venegas Quality VTE Deep Vein Thrombosis/Pulmonary Embolism Present on Admission: No
--- NOTE | 2021-10-05 11:46 | PC.NURSE ---
Patient up to chair this morning with PT. A/O x 3. LLE dressing intact, quarter sized drainage. SANTOS remains intact. Patient encouraged to continue moving, receptive. VSS. Patient 95-98% on RA. Lungs CTA. Voiding using urinal. Reports L Knee pain 2-5 depending on movement, CMS intact. SCD's on bilaterally. Patients daughter in room for discharge instructions. Patient and daughter verbalized understanding regarding f/u appointment with Theo, wound care, medication, and home safety. IV removed, patient tolerated. Denied further needs. Patient wheeled out in wheelchair with aide assist.
== END 2021-10-05 11:40 | disposition home or self-care (01) ==
LOC: OR 05:56 → AC 05:56
PROVIDERS: PCP Family Medicine; Referring Provider Orthopaedic Surgery; Visit Provider Orthopaedic Surgery
PROC: 0SRD0JZ Replacement of Left Knee Joint with Synthetic Substitute, Open Approach (ICD-10-PCS; CPT 27447; principal; 2021-10-04 07:45)
DX: M17.12 Unilateral primary osteoarthritis, left knee (principal); D62 Acute posthemorrhagic anemia; G47.33 Obstructive sleep apnea (adult) (pediatric); K21.9 Gastro-esophageal reflux disease without esophagitis; I10 Essential (primary) hypertension; E78.5 Hyperlipidemia, unspecified; F41.9 Anxiety disorder, unspecified; E78.00 Pure hypercholesterolemia, unspecified; F32.9 Major depressive disorder, single episode, unspecified; E66.9 Obesity, unspecified; Z68.33 Body mass index [BMI] 33.0-33.9, adult
CPT/HCPCS: 27447; 36415; 73560; 85014; 85018; 97110; 97161; C1776; C9290; J0171; J0690; J1100; J1170; J2250; J2270; J2405; J2704; J3010; J3410

== ENCOUNTER → 2022-01-01 11:48 | Outpatient (CLI) | payer MEDICARE, OTHER, SELFPAY ==
[2021-10-04 15:05] VITALS: BMI 33.3
--- NOTE | 2022-01-01 11:49 | DI.MRI.S_ITS ---
PROCEDURE: MR LUMBAR SPINE WO CON INDICATIONS: Spinal stenosis, lumbar region TECHNIQUE: Noncontrast sagittal T1 spin echo and T2 fast echo, sagittal STIR, and T2 fast spin echo through the lumbar spine. In cases with scoliosis, additional coronal T2 fast spin echo may be performed. COMPARISON: [facility], CR, XR LUMBAR SPINE WITH OBLIQUES PLUS FLEXION EXTENSION, 12/23/2021, 11:08. [facility], , L-SPINE WITHOUT CONTRAST, 03/04/2016, 8:07. FINDINGS: Image quality: Excellent. Alignment and Curvature: 5 lumbar type vertebral bodies are present by plain film. There is mild grade 1 retrolisthesis of L2 on L3, L3 on L4, and L5 on S1. Bone Marrow: Marrow is of normal overall signal. No acute vertebral body compression fractures. Moderate reactive signal within the endplates adjacent to the L5-S1 intervertebral disc. Mild reactive signal within the remaining endplates of the lumbar and lower thoracic spine. Spinal Cord: Conus medullaris terminates at the L1-L2 disc space level. Visualized cord demonstrates normal signal and size. Paraspinous Soft Tissues: No paravertebral masses. T12-L1: Normal appearance. L1-L2: Normal appearance. L2-L3: Mild disc desiccation and diffuse disc bulge. Mild bilateral facet hypertrophy. No significant canal, or foraminal stenosis. L3-L4: Moderate disc height loss and desiccation. Mild diffuse disc bulge with small superimposed broad-based left far lateral protrusion. Mild bilateral facet hypertrophy. Mild epidural lipomatosis. Mild canal stenosis. Mild bilateral foraminal stenosis. L4-L5: Moderate disc height loss and desiccation. Mild diffuse disc bulge. Mild facet and ligamentum flavum hypertrophy. Mild epidural lipomatosis. Mild canal stenosis. Mild right and moderate left foraminal stenosis. L5-S1: Severe disc height loss and desiccation. Mild diffuse disc bulge/osteophyte. Mild bilateral facet hypertrophy. Mild canal stenosis. Moderate bilateral foraminal stenosis. IMPRESSION: 1. Multilevel degenerative disc and facet disease, as well as ligamentum flavum hypertrophy and epidural lipomatosis. 2. Mild multilevel canal stenoses. 3. Multilevel foraminal stenoses, worst at L4-L5 and L5-S1, where there are moderate foraminal stenoses. Dictated by: Makayla Velasco M.D. on 01/01/2022 at 14:05 Approved by: Makayla Velasco M.D. on 01/01/2022 at 14:08
== END ==
PROVIDERS: PCP Family Medicine; Referring Provider Physical Medicine & Rehabilitation; Visit Provider Physical Medicine & Rehabilitation
DX: M48.061 Spinal stenosis, lumbar region without neurogenic claudication (principal); M48.07 Spinal stenosis, lumbosacral region; M51.36 Other intervertebral disc degeneration, lumbar region; M51.37 Other intervertebral disc degeneration, lumbosacral region
CPT/HCPCS: 72148

== ENCOUNTER → 2022-04-18 10:58 | Outpatient (CLI) | payer MEDICARE, OTHER, SELFPAY ==
[2021-10-04 15:05] VITALS: BMI 33.3
[2022-04-18 12:26] LABS: Add Manual Diff / Slide Review NO; Basophils Absolute Auto 200 /uL (0-100); Basophils Percent Auto 3.7 % (0-2); Eosinophils Absolute Auto 300 /uL (0-450); Hematocrit 43.7 % (41-53); Hemoglobin 15.3 g/dL (13.5-17.5); Lymphocytes Absolute Auto 1700 /uL (1100-4500); Lymphocytes Percent Auto 30.5 % (25-40); Mean Corpuscular HGB Conc 34.9 % (30-36); Mean Corpuscular Hemoglobin 33.4 PG (26-34); Mean Corpuscular Volume 95.8 fL (80-100); Monocytes Absolute Auto 600 /uL (0-900); Neutrophils Absolute Auto 2700 /uL (1500-7000); Neutrophils Percent Auto 49.8 % (50-75); Platelet Count 178 X10^3/uL (150-400); Red Blood Cell Count 4.57 X10^6/uL (4.5-5.9); Red Cell Distribution Width 13.5 % (11.6-14.8); White Blood Cell Count 5.4 X10^3/uL (4.5-11.0)
[2022-04-18 12:49] LABS: BUN Creatinine Ratio 14.1 (6-22); Blood Urea Nitrogen 12 mg/dL (9-20); Calcium 9.1 mg/dL (8.4-10.2); Carbon Dioxide 25 mmol/L (22-32); Chloride 104 mmol/L (98-107); Estimated Glomerular Filt Rate > 60 mL/min (>60); Glucose 100 mg/dL (80-110); HEMOLYSIS < 15 (0-50); Potassium 4.3 mmol/L (3.4-5.1); Sodium 139 mmol/L (137-145)
[2022-05-02 10:14] LABS: Hemoglobin A1C% w Est Avg Glu 5.9 % (4.0-6.0)
== END ==
PROVIDERS: PCP Family Medicine; Referring Provider Orthopaedic Surgery Orthopaedic Surgery of the Spine; Visit Provider Orthopaedic Surgery Orthopaedic Surgery of the Spine
DX: Z01.818 Encounter for other preprocedural examination (principal); Z01.812 Encounter for preprocedural laboratory examination
CPT/HCPCS: 36415; 80048; 83036; 85025; 93005; 93010

== ENCOUNTER → 2022-05-14 10:15 | Outpatient (CLI) | payer MEDICARE, OTHER, SELFPAY ==
[2021-10-04 15:05] VITALS: BMI 33.3
[2022-05-14 11:06] LABS: COVID19 -Nasal RAPID Negative (Negative)
== END ==
PROVIDERS: PCP Family Medicine; Referring Provider Orthopaedic Surgery Orthopaedic Surgery of the Spine; Visit Provider Orthopaedic Surgery Orthopaedic Surgery of the Spine
DX: Z20.822 Contact with and (suspected) exposure to COVID-19 (principal)
CPT/HCPCS: 87635; C9803

== ENCOUNTER 2022-05-17 13:05 | Inpatient (IN) | payer MEDICARE, OTHER, SELFPAY ==
[2021-10-04 15:05] VITALS: BMI 33.3
[2022-05-07 08:50] VITALS: BMI 34.0
[2022-05-16] VITALS (22 sets, daily range): BP systolic 84–121; BP diastolic 39–69; PULSE 59–80; RESP 12–18; TEMP 35.5–36.7; O2SAT 90–98; BMI 34.0; BMI 34.4
--- NOTE | 2022-05-16 | DI.RAD.S_ITS ---
PROCEDURE: XR LUMBAR SPINE 2-3V INDICATIONS: L4-5, L5-S1 POSTERIOR FUSION TECHNIQUE: 2 intraoperative fluoroscopic views of the lumbar spine were acquired. COMPARISON: None. FINDINGS: Intraoperative fluoroscopic images of lower lumbar spine shows posterior fusion at L4-5 and L5-S1 levels with intervertebral spacer placement. IMPRESSION: Fluoro guidance was provided intraoperatively for posterior fusion at L4 through S1 levels. Dictated by: Kwabena Rogers M.D. on 05/16/2022 at 12:18 Approved by: Kwabena Rogers M.D. on 05/16/2022 at 12:19
[2022-05-16] MEDS: LACTATED RINGERS 1,000 ML 42 ML IV ×2 (07:27→09:25)
--- NOTE | 2022-05-16 07:43 | PM.PREOP ---
Pre-operative Note COVID-19 COVID-19 status: Negative Result date/Date tested (Pos, Neg/Pending): 05/15/22 Criteria for continued procedure: Expected advancement of disease process, Possibility delay results in more complex future surgery or treatment, Increased loss of function, Continuing or worsening of significant or severe pain, Deterioration of the patient's condition or overall health and Delay expected to result in less-positive ultimate med/surg outcome Interval Note History & Physical reviewed/Exam performed by Physician: Yes Changes to H&P: No
[2022-05-16] MEDS: CEFAZOLIN 2 GM/100 ML PREMIX 100 ML IV ×3 (08:20→23:56)
[2022-05-16] MEDS: ACETAMINOPHEN IV 1,000 MG/100 ML VIAL 400 MG IV (08:20)
--- NOTE | 2022-05-16 08:42 | SUR.OPER ---
Prone on spine table, head in foam head support, padded chest and pelvic supports, gel pad at knees, lower legs supported by pillows; nipples, genitalia and toes free of pressure, arms secured on foam padded arm boards at <90 degrees abduction. Tape over blanket at thigh secured to table. POSITION APPROVED BY [employer]ESTHERSIA
[2022-05-16] MEDS: BUPIVACAINE LIPOSOME 266 MG/20 ML VIAL INJ (12:00)
[2022-05-16] MEDS: BUPIVACAINE 0.25% (PF) 30 ML, EPINEPHrine 0.3 MG INJ (12:00)
--- NOTE | 2022-05-16 12:06 | P.OP_ITS ---
Operative Date/Time/Diagnoses Date of procedure: 05/16/22 Time of procedure: 07:45 Pre-op diagnosis: 1. L4-5, L5-S1 spinal stenosis 2. Epidural lipomatosis with spinal stenosis 3. Lumbar spondylosis with radiculopathy Post-op diagnosis: same Procedure & Clinicians Procedure: 1. L4-5, L5-S1 Postero-lateral and posterior interbody fusion 2. L4-5, L5-S1 interbody cage placement. 3. L4-5, L5-S1 decompressive laminectomy with bilateral facetecomies 4. L4-5, L5-S1 Posterior segmental instrumentation 5. [place] of bone marrow from iliac crest 6. Utilization of microsurgical technique and operating microscope 7. Utilization of robotic assisted navigation Same procedure as scheduled: Yes Indications: Patient has been having chronic back pain and worsening lumbar radiculopathy and symptoms of neurogenic claudication. Patient failed multiple conservative management with worsening pain weakness and numbness in his lower extremity. Patient has been having difficulty performing activity of daily living. After discussing risks benefits of treatment options, patient elected proceed with surgery. Surgeon: Seb Ramírez Leadership Recruiter: Leyla Sparrow Click Yes if Unassisted: No Anesthesia Type: General Operative Notes Closure Type: primary Specimen(s): none sent Prosthetic devices, grafts, tissues, transplants, or devices: Globus CREO MIS screws, Rise cages Applied: catheter Estimated Blood Loss (mL): 550 Blood products transfused: none Procedure in detail: Patient was seen in the preoperative area. Risks and benefits of the surgery was discussed with the patient. Informed consent was obtained from the patient and placed in the chart. Surgical site was marked. Patient was taken to the operative room. General anesthesia was administered. Prophylactic antibiotic was given to the patient less than 30 min before the incision was made. Patient was placed into a prone position on the [place] table. Patient's back was then prepped and draped in the sterile fashion. Time-out was performed at this time. After patient was prepped and draped, patient's PSIS was palpated and marked bilaterally. Small 1 cm incision was made over the PSIS for placement of the reference probes. Two trocar was placed into the PSIS 1 on each side. The reference probe was attached to the trocar of the reference apparatus. At this time the C-arm imaging was used to confirm AP and lateral of L4-L5, L5- S1 vertebrae and merged the C-arm imaging using the Vinsula robotic navigation system with the CT of the lumbar spine. After successful merging was completed and confirmed, skin marker was used to sarthak out the skin incision using the Vinsula robotic arm. Bilateral incision was made at this time. Pre templated trajectory was used and guided using the Vinsula robotic navigation system for bilateral L4, L5, S1 pedicle screw placement. This was done by using the robotic arm to guide the high-speed bur to make a cortical entry point. Next a drill was placed also using the robotic arm and guided using the navigation system drilling partially through bilateral L4, L5 and S1 pedicles. Next L4, L5, S1 pedicle screws it was pre templated and measured was placed onto the power stock driver and inserted into the pedicles bilaterally. After all 6 screws were placed C-arm imaging was taken of both AP and lateral to confirm the placement. Excellent placement of the screws were confirmed and a matched precisely with the pre planned screw placement using the navigation system. MARs retractor was inserted using [employer] Diagnostics[employer] guidence. Globus MARS retractors was placed inside the incision and docked onto the L4 and L5 lamina. Using microsurgical technique and operating microscope, a L4, L5 laminectomy and L4-5, L5-S1 facetectomy was performed using a Kerrison rongeur. Patient was found have severe central and lateral recess and neural foramen stenosis which was fully decompressed after the laminectomy facetectomy. Patient was also found to significant epidural lipomatosis at both levels. The lipomas were carefully resected using Kerrison rongeur to further decompress the epidural space. More than 75% of the facets were removed during the process of decompression rendering L4-5, L5-S1 level grossly unstable and required a fusion procedure at the same time. The disc space at L4-5, L5-S1 was identified, and a total diskectomy was performed at L4-5, L5-S1 level. The endplates were dec orticated using a rasp and shaver. The total diskectomy and decortication was performed at L4-5, L5-S1 level in order to to accomplish a L4-5, L5-S1 fusion. The local bone from the laminectomy and facetectomy was saved for local bone grafting. After the total diskectomy and decortication was completed, Trifecta bone graft material was combined with local bone that was harvested earlier. At this time, a separate skin is incision was made over the iliac crest. A Jamshidi needle was inserted into the iliac crest through a separate skin incision. 5 cc of bone marrow aspiration was obtained through the separate skin incision using a Jamshidi needle from the iliac crest. The bone marrow aspiration was combined with local bone and the Trifecta bone grafting material. The bone grafting material was placed into the L4-5, L5-S1 interbody space along with a expandable cage. The cage was expanded to its maximum height using the torque limiting screwdriver. The disc preparation as well as the cage insertion were also performed under navigation guidance. After the cage was placed, AP and lateral C-arm imaging was taken to confirm placement of the cage and excellent position was confirmed. Globus MARS retractor was inserted and docked onto the L4-5, L5-S1 posterolateral gutter on the right side. Using the power drill, posterior- lateral decortication was performed at L4-5, L5-S1 level until bleeding cortical bone was identified. The remaining bone grafting material was placed into the L4-5, L5-S1 posterior lateral gutter he order to accomplish posterolateral fusion at the L4-5, L5-S1 level. At this time the tulips were attached to the L4, L5, S1 pedicle screw shanks. After measuring the length of the rods, they were inserted into the tulips of the pedicle screws and locked in place using locking caps and torque limiting screwdriver bilaterally. Total 6 caps and 2 titanium rods was used in order to complete the posterior instrumentation construct. After all the hardware was placed, and confirmed with AP and lateral C-arm imaging, the wound was then irrigated with sterile normal saline and packed with Ray-Aureliano gauze for 3 min to accomplish hemostasis. After the gauze was removed the deep fascia was closed with #1 Vicryl suture. The subcutaneous layer was closed with 2-0 Vicryl. The skin was closed with skin bill. Patient tolerated the procedure well. There were no complications. Neuro monitoring system was used to monitor patient's neurologic status throughout entire procedure. There was no disturbance of the neural monitoring signals throughout the case. Complications: none Post-operative Condition: stable Disposition: PACU Plan for aftercare: Admit to inpatient hospital
[2022-05-16] MEDS: hydrOXYzine 50 MG/ML INJ 25 MG IM (12:39)
[2022-05-16] MEDS: HYDROMORPHONE 2 MG INJ IV ×4 (12:40→13:16)
[2022-05-16] MEDS: HYDROCODONE/ACET 5/325 TABLET 1 TAB PO ×2 (12:55→13:30)
[2022-05-16] MEDS: LACTATED RINGERS 1,000 ML 150 ML IV (12:56)
[2022-05-16] MEDS: SODIUM CHLORIDE 0.9% 1,000 ML 100 ML IV (14:22)
[2022-05-16] MEDS: HYDROMORPHONE 0.5 MG INJ IV ×4 (15:27→23:20)
--- NOTE | 2022-05-16 15:30 | PT.IIE ---
Current Diagnoses Spondylolisthesis, lumbar region (05/16/22) Spinal stenosis, lumbar region without neurogenic claudication (05/16/22) Surgery Performed Operation Date: 05/16/22 07:45 Actual Procedures p L4-5, L5-S1 TLIF w. posterior instrumentation -Robot - Seb Ramírez MD Surgical History (Last Updated 05/07/22 @ 08:56 by Ava Hdz RN) History of arthroplasty of left knee (10/04/21) History of arthroscopy of left shoulder History of arthroscopy of right shoulder History of esophagogastroduodenoscopy (EGD) History of surgery History of total left hip replacement (~2009) Hx of colonoscopy Hx of hernia repair Status post right partial knee replacement (~2017) Medical History (Last Reviewed 10/05/21 @ 10:06 by Leyla Sparrow PA-C) Anxiety Arthritis Chest pain Chronic shortness of breath DDD (degenerative disc disease) Depression (04/2020) GERD (gastroesophageal reflux disease) HLD (hyperlipidemia) HTN (hypertension) Hyperactive Kidney stones OCD (obsessive compulsive disorder) GERARDO on CPAP Osteoarthritis Seasonal allergies Physical Therapy Inpatient Evaluation/Re-Eval M1 PT/OT-IP Prior Functional Status Start: 05/16/22 16:31 Freq: NEEDED Status: Active Protocol: Document 05/16/22 15:30 AB (Rec: 05/16/22 16:43 AB [id number]) Medical Review Prior Functional Status Medical History Reviewed Yes Communication pt is sleepy but able to make needs known Mobility and Gait daughter in room and provided some PLOF and home set up info : stated that pt is modified independent with all mobilities and ambulation without AD Social History Household Members family,children Living Arrangements House Number of Floors (Floors) One Floor Number of Stairs To Enter/Railing? 2 platform steps to enter the house Home Environment High Toilet,Walk in Shower, Built-In Shower Seat Home Equipment Front Wheel Walker,Straight Cane,Raised Toilet Seat w/ Armrests,Hand Held Shower Additional Social History Comment lives with her daughter and 2 grandsons M2 PT-IP Current Condition Start: 05/16/22 16:31 Freq: NEEDED Status: Active Protocol: Document 05/16/22 15:30 AB (Rec: 05/16/22 16:43 AB [email or web address]) Physical Therapy Current Condition Current Condition Evaluation Date 05/16/22 Treatment Diagnosis s/p L4-5, L5-S1 TLIF; difficulty in walking Onset Date 05/16/22 M3 PT-IP Subjective Start: 05/16/22 16:31 Freq: NEEDED Status: Active Protocol: Document 05/16/22 15:30 AB (Rec: 05/16/22 16:43 AB [email or web address]) Subjective Physical Therapy Visit Type Type Initial Evaluation Visit Start Time 15:30 Visit Stop Time 16:20 Total Visit Minutes 50 Number of DOWNSTREAM BIOMANUFACTURING TECHNICIAN Visits 0 Physical Therapy Visit Comments Patient Comments agreeable to do PT M4 PT-IP Mobility and Gait Start: 05/16/22 16:31 Freq: NEEDED Status: Active Protocol: Document 05/16/22 15:30 AB (Rec: 05/16/22 16:43 AB [email or web address]) PT-Bed Mobility Assessment Rolling Type of Rolling Log Rolling Level of Assist Maximal Assistance Supine to Sit Supine to Sit Maximum Assistance,1 Person Assistance,2 Person Assistance Sit to Supine Sit to Supine Maximum Assistance,2 Person Assistance PT-Transfer Assessment Sit to and From Stand Sit to and from Stand Moderate Assistance,Maximum Assistance,1 Person Assistance ,Use of Upper Extremities Equipment Transfer Assistive Device Front Wheeled Walker Orthotic/Prosthetic Devices or Brace: No Comments Mobility Comments pt is sleepy but want to get up and adjust position in bed due to c/o increase back pain. daughter in room with pt. educated pt and daughter regarding pt's back precautions and log roll bed mobility. BP in supine: 105/66 . pt completed log roll supine to sit max A x 1-2 and max cues. able to sit on EOB min A with initial increase posterior trunk lean and requires cues to reposition and safety. pt requires frequent cues to stay awake. BP sittin/60. pt completed sit to stand mod to max A and max cues. ambulated 5 ft forward and then backwards using FWW mod to max A and max cues. BP after ambulation sitting on EOB: 95/ 63. completed sit to supine max A x 2 and max cues. positioned pt in bed max A. call light and table placed within reach. caregiver training set up for tomorrow at 10 am Gait Assessment Gait Gait Assistance Required: Moderate Assistance,Maximum Assistance,1 Person Assist Distance (Feet) 10 Able to Maintain Weight Bearing Status Yes During Gait Assistive Devices Assistive Device Gait Belt,Front Wheeled Walker Orthotic/Prosthetic Devices or Brace: No Gait Deviations General Gait Pattern Decreased Stride Length, Decreased Feet Clearance,Step- to Gait Factors Limiting Gait Function Factors Limiting Gait Function Decreased Activity Tolerance, Decreased Strength,Difficulty Following Directions,Limited Range of Motion,Pain,Poor Balance,Poor Safety Awareness PT-Balance Assessment Sitting Balance and Reactions Static Sitting Balance Ability Good Dynamic Sitting Balance Ability Fair Standing Balance and Reactions Static Standing Balance Ability Poor Dynamic Standing Balance Ability Poor Device Used FWW M5 PT-IP Objective Assessments Start: 05/16/22 16:31 Freq: NEEDED Status: Active Protocol: Document 05/16/22 15:30 AB (Rec: 05/16/22 16:43 AB [email or web address]) Orientation Orientation/Cognition Level of Alertness Lethargic Orientation Name,Place,Situation Language Function Ability No Deficits Noted Safety Awareness Decreased Safety Awareness Memory Description Short Term Impaired Gross Range of Motion Lower Extremity ROM Assessment Within Functional Limits Strength Lower Extremity Strength Assessment Left Impaired Hip 3+/5 Knee 3+/5 Sensation Assessment Sensation Gross Sensation WNL Muscle Tone Muscle Tone WNL Yes M6 PT-IP Treatment Start: 05/16/22 16:31 Freq: NEEDED Status: Active Protocol: Document 05/16/22 15:30 AB (Rec: 05/16/22 16:43 AB [email or web address]) Physical Therapy Treatment Education Education Provided Precautions,Weight Bearing Status,Post-Op Packet,Safety M7 PT-IP Assessment and Plan Start: 05/16/22 16:31 Freq: NEEDED Status: Active Protocol: Document 05/16/22 15:30 AB (Rec: 05/16/22 16:43 AB [email or web address]) PT Summary Assessment and Plan Potential Rehabilitation Potential Fair Status of Condition at Evaluation Evolving Summary Impairments Pain,ROM,Strength,Balance, Coordination,Sensation,Tone, Cognition,Bed Mobility, Transfers,Gait,Activity Tolerance Assessment Summary pt s/p L4-5, L5S1 TLIF and just had surgery this morning. Pt is lethargic this afternoon but wants to move and requires max A x 1-2 with bed mobility and mod to max A for sit to stand and ambulation using FWW. Caregiver training set up for tomorrow at 10am. d/c plan depends on progress and will continue to assess. Goals Bed Mobility Goal Standby Assistance Transfer Goal Standby Assistance,Front Wheeled Walker Gait Goal Standby Assistance,Front Wheel Walker Gait Distance 200 Other Goals up/down 2 platform steps using FWW CGA Days to Meet Goals 10 Frequency of Treatment Frequency Of Treatment Twice a Day Treatment Plan Physical Therapy Treatment Plan Bed Mobility Training,Transfer Training,Gait Training, Therapeutic Exercise,Balance Retraining,Post Op Education, Discharge Planning,Hot or Cold Pack,Neuromuscular Re-ed, Coordination Retraining,Manual Therapy Precautions Lumbar Precautions Log Roll,No Twisting,Limit Bending,Lifting Restriction of 10 lbs,Gait Belt above Incisional Area Recommendations To Nursing Amount of Assist Needed 2 Person Assist Discharge Recommendations PT Discharge Recommendations Home with 20/04 Assist Available,Home Health Transportation Needs at Discharge Private Vehicle,Wheelchair/ Cabulance
--- NOTE | 2022-05-16 16:53 | PC.NURSE ---
Post-op: Having some pain issues from pacu. Reviewed pain med regime and wanted to wait. Later did take dilaudid and felt better. Pt having some difficulty maintaining adaq oxygenation. His cpap was applied in pacu, on arrival to floor if pt stayed awake the sats were 91-93%, as soon as he dozed off sats were down to 87%. RT called and they placed device for cpap for O2 to be bled into the line. Pt is currently on O2 at 4L via cpap. Sats are 93 to 95%. He reports he is doing well and feeling better since taking pain med.
[2022-05-16] MEDS: SODIUM CHLORIDE 0.9% 500 ML 1000 ML IV (18:39)
[2022-05-16] MEDS: hydrOXYzine pamoate 25 MG CAPSULE PO (19:45)
[2022-05-16] MEDS: HYDROCODONE/ACET 5/325 TABLET 2 TAB PO (19:45)
[2022-05-16] MEDS: SENNOSIDES 8.6 MG TABLET 17.2 MG PO (20:47)
[2022-05-16] MEDS: DOCUSATE 100 MG CAPSULE PO (20:47)
--- NOTE | 2022-05-16 22:12 | PC.NURSE ---
Patient is alert and oriented. Breath sounds CTA. Using home CPAP with oxygen bled in at 4L/min with sat of 97% but desats with conversation and when sleeping is a mouth breather so desats intermittently. HRR. Denies nausea. BT present and states he has passed flatus. Indwelling catheter is patent; urine is clear, dark bruce. Is able to turn in bed with assistance. Dressing to back is CDI. Having some pain control issues so was medicated with Vicodin and Vistaril at 1944 and then with IV Dilaudid at 2046 and is currently asleep. CMS is intact. Wearing bilateral foot SCD's. Fall risk score is high and bed alarm is activated.
[2022-05-17] MEDS: HYDROMORPHONE 0.5 MG INJ IV ×3 (01:50→08:10)
[2022-05-17] MEDS: hydrOXYzine pamoate 25 MG CAPSULE PO ×3 (01:55→13:36)
[2022-05-17] MEDS: SODIUM CHLORIDE 0.9% 1,000 ML 100 ML IV (01:55)
[2022-05-17] MEDS: HYDROCODONE/ACET 5/325 TABLET 2 TAB PO (03:19)
[2022-05-17 05:06] VITALS: BP 105/56; PULSE 82; RESP 16; TEMP 36.6; O2SAT 92
[2022-05-17] MEDS: PANTOPRAZOLE DR 20 MG TABLET PO (05:47)
[2022-05-17 06:23] LABS: Hematocrit 32.2 % (41-53); Hemoglobin 11.4 g/dL (13.5-17.5)
[2022-05-17] MEDS: METOPROLOL ER 50 MG TABLET PO (08:10)
[2022-05-17] MEDS: PARoxetine 20 MG TABLET 40 MG PO (08:10)
[2022-05-17] MEDS: DOCUSATE 100 MG CAPSULE PO ×2 (08:10→20:02)
[2022-05-17] MEDS: CHOLESTYRAMINE/ASPARTAME 4 GM PACK PO (08:34)
--- NOTE | 2022-05-17 08:37 | PM.PNPO.1 ---
Subjective Subjective Date Patient Seen: 05/17/22 Time Patient Seen: 08:37 Interval history: Pt sitting in bed eating breakfast, c/o severe pain in low back, denies leg pain. Reports h/o hallucinations w/ oxycodone, but does say this could be because he took too much. Per PT, he did work with them yesterday but pt unable to recall this at this time due to pain. His daughter and her family live with him and he plans on going home with them when stable/safe. He did receive a NS bolus last night d/t high BP. Moser catheter placed prior to surgery remains in place. Exam Vital Signs (past 8 hours): - 05/17/22 05:06 Temperature 97.8 F Pulse Rate 82 Respiratory Rate 16 Blood Pressure 105/56 L Pulse Oximetry 92 Oxygen Flow Rate 4 Oxygen Delivery Method Nasal Cannula,CPAP Oxygen Flow Rate 4 Narrative Exam Narrative: 5/5 strength in hip flexors, quadriceps, hamstrings, DF, PF, EHL bilaterally. Sensation to light touch intact in BLE. Calves soft, compressible, nontender and without palpable cords or masses. Pt unable to roll to one side to allow me to evaluate dressing. Moser draining adequate amounts of clear, blood-tinged urine. Objective Labs Result Diagrams: 05/17/22 06:17 Labs: Laboratory Results - last 24 hr 05/17/22 06:17 Hgb 11.4 L Hct 32.2 L PFSH Medical History Anxiety Arthritis Chest pain Chronic shortness of breath DDD (degenerative disc disease) Depression (04/2020) GERD (gastroesophageal reflux disease) HLD (hyperlipidemia) HTN (hypertension) Hyperactive Kidney stones OCD (obsessive compulsive disorder) GERARDO on CPAP Osteoarthritis Seasonal allergies Surgical History (Updated 05/17/22 @ 08:42 by Leyla Sparrow PA-C) History of arthroplasty of left knee (10/04/21) History of arthroscopy of left shoulder History of arthroscopy of right shoulder History of esophagogastroduodenoscopy (EGD) History of surgery History of total left hip replacement (~2009) Hx of colonoscopy Hx of hernia repair Status post right partial knee replacement (~2017) Social History household members: family and children Smoking Status: Former smoker alcohol intake: former Assessment & Plan Post-op Assessment and plan (1) S/P lumbar fusion: Assessment and Plan narrative: Increase hydrocodone to 10/325 for baseline pain control. Change IV hydromorphone to PO PRN severe pain. Schedule hydroxyzine rather than PRN for muscle spasm. D/c moser catheter, continue PT. Discharge home pending pain control, progress w/ PT. (2) Acute postoperative anemia due to expected blood loss: Assessment and Plan narrative: Will continue IVF throughout today, additional bolus PRN for low BP. (3) Obesity (BMI 30.0-34.9): Postoperative Procedures: Procedures Operation Date: 05/16/22 07:45 Actual Procedure Side Surgeon p L4-5, L5-S1 TLIF w. posterior instrumentation -Robot Seb Ramírez MD Postoperative day: 1 Quality VTE Deep Vein Thrombosis/Pulmonary Embolism Present on Admission: No
[2022-05-17 08:55] VITALS: BP 112/58; PULSE 78; RESP 18; TEMP 36.6; O2SAT 96
--- NOTE | 2022-05-17 10:00 | PT.IPTN ---
Current Diagnoses Acute posthemorrhagic anemia (05/16/22) Obesity, unspecified (05/16/22) Spondylolisthesis, lumbar region (05/16/22) Spinal stenosis, lumbar region without neurogenic claudication (05/16/22) Arthrodesis status (05/16/22) Surgery Performed Operation Date: 05/16/22 07:45 Actual Procedures p L4-5, L5-S1 TLIF w. posterior instrumentation -Robot - Seb Ramírez MD Physical Therapy Treatment Note M2 PT-IP Current Condition Start: 05/16/22 16:31 Freq: NEEDED Status: Active Protocol: Document 05/16/22 15:30 AB (Rec: 05/16/22 16:43 AB [id number]) Physical Therapy Current Condition Current Condition Evaluation Date 05/16/22 Treatment Diagnosis s/p L4-5, L5-S1 TLIF; difficulty in walking Onset Date 05/16/22 M3 PT-IP Subjective Start: 05/16/22 16:31 Freq: NEEDED Status: Active Protocol: Document 05/17/22 10:00 AB (Rec: 05/17/22 11:23 AB [email or web address]) Subjective Physical Therapy Visit Type Type Treatment Note Visit Start Time 10:00 Visit Stop Time 11:00 Total Visit Minutes 60 Number of STAFF SOFTWARE ENGINEER Visits 0 Physical Therapy Visit Comments Patient Comments pt is agreeable to do PT; daughter in room for caregiver training Therapy Pain Assessment Location Lower Back Intensity 7 Scale Used Numeric (0 - 10) Description Burning Pain Management Techniques Apply Cold,Elevation, Modification of Treatment,Re- positioning M4 PT-IP Mobility and Gait Start: 05/16/22 16:31 Freq: NEEDED Status: Active Protocol: Document 05/17/22 10:00 AB (Rec: 05/17/22 11:23 AB [id number]) PT-Bed Mobility Assessment Rolling Type of Rolling Log Rolling Level of Assist Maximal Assistance Supine to Sit Supine to Sit Maximum Assistance PT-Transfer Assessment Sit to and From Stand Sit to and from Stand Maximum Assistance,1 Person Assistance,Use of Upper Extremities Equipment Transfer Assistive Device Gait Belt,Front Wheeled Walker Orthotic/Prosthetic Devices or Brace: No Transfers Transfer Destination Chair Transfer Technique ambulation Transfer Ability Level of Assist Maximum Assistance,1 Person Assistance,Use of Upper Extremities Comments Mobility Comments pt stated that he feels floaty . BP in supine : 109/58. O2 sat at RA 88-94%. informed nurse and stated that pt can get 2L/min O2 if needed. pt requires cues to recall back precautions. completed supine to sit log roll max A and max cues. (+) SOB and c/o lightheadedness. BP: 129/73 O2 sat 92% O2 provided 2L/min and O2 sat increased to 94-96% . pt stated that he feels less lightheaded after resting . complete sit to stand max A and max cues x 2 attempts. cued for techniques and safety . presents with increase posterior LOB with initial standing requiring max A for steadiness and cues for body positioning. ambulated in room using FWW mod to max A and max cues ~ 20 ft. presents with unsteady gait. pt sat on chair. mod to max A and max cues for controlled descent to chair. positioned pt on chair. call light and table placed within reach. set up another caregiver training for this afternoon bet 1pm to 130 pm. daughter and pt agreed. caregiver training initiated. educated daughter on use of safety belt and how to assist pt. daughter was able to put safety belt on pt and assisted pt with sit to stand max A and max cues provided to pt. PT provided cues as well. will need further caregiver training. pt Gait Assessment Gait Gait Assistance Required: Moderate Assistance,Maximum Assistance,1 Person Assist Distance (Feet) 20 Able to Maintain Weight Bearing Status Yes During Gait Assistive Devices Assistive Device Gait Belt,Front Wheeled Walker Orthotic/Prosthetic Devices or Brace: No Gait Deviations General Gait Pattern Antalgic,Decreased Stride Length,Decreased Feet Clearance,Step-to Gait Factors Limiting Gait Function Factors Limiting Gait Function Decreased Activity Tolerance, Decreased Strength,Difficulty Following Directions,Limited Range of Motion,Pain,Poor Balance,Poor Safety Awareness, Respiratory Distress PT-Balance Assessment Sitting Balance and Reactions Static Sitting Balance Ability Good Dynamic Sitting Balance Ability Fair Standing Balance and Reactions Static Standing Balance Ability Poor Dynamic Standing Balance Ability Poor Device Used FWW M5 PT-IP Objective Assessments Start: 05/16/22 16:31 Freq: NEEDED Status: Active Protocol: Document 05/16/22 15:30 AB (Rec: 05/16/22 16:43 AB [id number]) Orientation Orientation/Cognition Level of Alertness Lethargic Orientation Name,Place,Situation Language Function Ability No Deficits Noted Safety Awareness Decreased Safety Awareness Memory Description Short Term Impaired Gross Range of Motion Lower Extremity ROM Assessment Within Functional Limits Strength Lower Extremity Strength Assessment Left Impaired Hip 3+/5 Knee 3+/5 Sensation Assessment Sensation Gross Sensation WNL Muscle Tone Muscle Tone WNL Yes M6 PT-IP Treatment Start: 05/16/22 16:31 Freq: NEEDED Status: Active Protocol: Document 05/17/22 10:00 AB (Rec: 05/17/22 11:23 AB [id number]) Physical Therapy Treatment Education Education Provided Precautions,Safety M7 PT-IP Assessment and Plan Start: 05/16/22 16:31 Freq: NEEDED Status: Active Protocol: Document 05/17/22 10:00 AB (Rec: 05/17/22 11:23 AB [id number]) PT Summary Assessment and Plan Potential Rehabilitation Potential Fair Summary Impairments Pain,ROM,Strength,Balance, Coordination,Sensation,Tone, Cognition,Bed Mobility, Transfers,Gait,Activity Tolerance Progress Towards Goals Slow Progress due to Pain,Slow Progress due to Activity Tolerance Assessment Summary pt continues to require mod to max A with mobililty with c/o 7/10 burning pain on low back affecting function. caregiver training initiated but further training is needed. will continue to assess progress. Goals Bed Mobility Goal Standby Assistance Transfer Goal Standby Assistance,Front Wheeled Walker Gait Goal Standby Assistance,Front Wheel Walker Gait Distance 200 Other Goals up/down 2 platform steps using FWW CGA Days to Meet Goals 10 Frequency of Treatment Frequency Of Treatment Twice a Day Treatment Plan Physical Therapy Treatment Plan Bed Mobility Training,Transfer Training,Gait Training, Therapeutic Exercise,Balance Retraining,Post Op Education, Discharge Planning,Hot or Cold Pack,Neuromuscular Re-ed, Coordination Retraining,Manual Therapy Other Recommendations and Next Treatment caregiver trainin05/17/22 Focus bet 1-130 pm Precautions Lumbar Precautions Log Roll,No Twisting,Limit Bending,Lifting Restriction of 10 lbs,Gait Belt above Incisional Area Recommendations To Nursing Amount of Assist Needed 2 Person Assist Discharge Recommendations PT Discharge Recommendations Home with 20/04 Assist Available,Home Health Transportation Needs at Discharge Private Vehicle,Wheelchair/ Cabulance
--- NOTE | 2022-05-17 11:17 | OT.IP.EVAL ---
Current Diagnoses Acute posthemorrhagic anemia (05/16/22) Obesity, unspecified (05/16/22) Spondylolisthesis, lumbar region (05/16/22) Spinal stenosis, lumbar region without neurogenic claudication (05/16/22) Arthrodesis status (05/16/22) Surgery Performed Operation Date: 05/16/22 07:45 Actual Procedures p L4-5, L5-S1 TLIF w. posterior instrumentation -Robot - Seb Ramírez MD Past Medical History (Last Reviewed 10/05/21 @ 10:06 by Leyla Sparrow PA-C) Anxiety Arthritis Chest pain Chronic shortness of breath DDD (degenerative disc disease) Depression (04/2020) GERD (gastroesophageal reflux disease) HLD (hyperlipidemia) HTN (hypertension) Hyperactive Kidney stones OCD (obsessive compulsive disorder) GERARDO on CPAP Osteoarthritis Seasonal allergies Surgical History (Last Updated 05/07/22 @ 08:56 by Ava Hdz RN) History of arthroplasty of left knee (10/04/21) History of arthroscopy of left shoulder History of arthroscopy of right shoulder History of esophagogastroduodenoscopy (EGD) History of surgery History of total left hip replacement (~2009) Hx of colonoscopy Hx of hernia repair Status post right partial knee replacement (~2017) Occupational Therapy Inpatient Evaluation/Re-Eval M1 PT/OT-IP Prior Functional Status Start: 05/16/22 16:31 Freq: NEEDED Status: Active Protocol: Document 05/17/22 09:27 [facility] (Rec: 05/17/22 13:32 [facility] [id number]) Medical Review Prior Functional Status Medical History Reviewed Yes Communication pt is sleepy but able to make needs known Mobility and Gait daughter in room and provided some PLOF and home set up info : stated that pt is modified independent with all mobilities and ambulation without AD Activities of Daily Living and IADL's Pt states took longer to do ADL and not able to do his socks due to his pain. Prior Functional Level (Other details) Pt's daughter to be at home with him to assist for one week. Social History Household Members family,children Living Arrangements House Number of Floors (Floors) One Floor Number of Stairs To Enter/Railing? 2 platform steps to enter the house Home Environment High Toilet,Walk in Shower, Built-In Shower Seat Home Equipment Front Wheel Walker,Straight Cane,Raised Toilet Seat w/ Armrests,Hand Held Shower Additional Social History Comment lives with her daughter and 2 grandsons M2 OT-IP Current Condition Start: 05/17/22 13:10 Freq: Status: Active Protocol: Document 05/17/22 09:27 [facility] (Rec: 05/17/22 13:32 [facility] [id number]) Occupational Therapy Current Condition Current Condition Evaluation Date 05/17/22 Treatment Diagnosis S/p L4-5, L5-S1 TLIF Diagnosis Onset Date 05/16/22 Post Operative Precautions Lumbar Precautions Log Roll,No Twisting,Limit Bending,Lifting Restriction of 10 lbs,Gait Belt above Incisional Area M3 OT- IP Subjective and Pain Start: 05/17/22 13:10 Freq: Status: Active Protocol: Document 05/17/22 09:27 [facility] (Rec: 05/17/22 13:32 [facility] [id number]) OT- Subjective Occupational Therapy Visit Type Type Initial Evaluation Visit Start Time 09:27 Visit Stop Time 11:17 Total Visit Minutes 37 Notes Pt seen from [id number] and [id number], pt's daughter present for the second part for caregiver training. Occupational Therapy Visit Comments Patient Comments Pt is lots of pain but wanting to go back to bed. Patient/Caregiver Goals TO go home. OT Pain Assessment Pain When Pain Assessed At Rest Pain Present Pain Present Pain Reported Location Lower Back Intensity 8 Scale Used Numeric (0 - 10) M4 OT- IP ADL's Start: 05/17/22 13:10 Freq: Status: Active Protocol: Document 05/17/22 09:27 [facility] (Rec: 05/17/22 13:32 [facility] [id number]) OT [id number] Comments OT Self-Feeding Comments NOt at meal time. OT ADL-Grooming General Evaluation Grooming Ability Independent Areas Needing Assistance Retrieving/Set-up of Grooming Items Comments OT Grooming Comments While in bed. OT ADL-Oral Care General Eval Oral Care Ability Independent Comments Oral Care Comments While in bed. OT ADL-Dressing General Eval Lower Body Dressing Ability Maximum Assistance Comments OT Dressing Comments Able to go over LB dressing equipment of senior laboratory technician and sock aid with pt. OT ADL-Toileting Comments OT Toileting Comments Pt not having to go. Spoke of toilet paper aid, bidet to increased ease with hygiene needs, otherwise pt will need assist. Pt would also benefit from use of urinal and BSC. OT ADL-Bathing Comments OT Bathing Comments Sponge bath more appropriate at this time. M5 OT- IP IADL's Start: 05/17/22 13:10 Freq: Status: Active Protocol: Document 05/17/22 09:27 [facility] (Rec: 05/17/22 13:32 [facility] [id number]) OT-Instrumental Activities of Daily Living Deficits IADL Deficits Identified Deficits Home Safety Awareness Awareness of Need for Assistance at Home Good Awareness Home Safety Comments Pt a bit groggy and would need assist to safety, ADL and mobility needs at this time Meal Preparation Meal Preparation Caregiver Provides Assist Compliance Review Officer Compliance Review Officer Caregiver Provides Assist M6 OT- IP Functional Cognition Start: 05/17/22 13:10 Freq: Status: Active Protocol: Document 05/17/22 09:27 [facility] (Rec: 05/17/22 13:32 [facility] [id number]) Cognitive Factors Limiting Selfcare Function Cognitive Ability Level of Alertness Alert,Drowsy Patient Orientation Name,Place,Situation Attention Span Ability Capable of Focused Attention, Capable of Sustained Attention Ability to Follow Commands Able to Follow One Step Commands with Increased Time, Able to Follow One Step Commands with Repetition Memory Description Short Term Impaired Safety Awareness Decreased Recall of Precautions,Decreased Ability to Apply Precautions Cognitive Comments Cognitive Assessment Comments Pt a bit groggy and not able to recall his back precautions and needing simple commands to follow. OT- Vision and Hearing OT- Hearing Assessment OT- Hearing Assessment WFL OT- Vision Assessment Visual Acuity Glasses All The Time M7 OT- IP Mobility and Balance Start: 05/17/22 13:10 Freq: Status: Active Protocol: Document 05/17/22 09:27 [facility] (Rec: 05/17/22 13:32 [facility] [id number]) OT- Bed Mobility Assessment Sit to Supine Sit to Supine Assist Maximum Assistance,2 Person Assistance OT-Transfer Assessment Sit to and From Stand Sit to and from Stand Minimal Assistance,Maximum Assistance,2 Person Assistance Transfers Transfer Ability Moderate Assistance,2 Person Assistance Technique Transfer Destination Bed,Chair Transfer Technique Stand Step Pivot Devices Transfer Assistive Devices Gait Belt,Front Wheeled Walker Comments Mobility Comments MAXAx1 and DASHAWN x1 to stand to FWW and MODA X2 with FWW for balance, to guide the FWW and to help ease pt back down to the bed. MAX AX2 to help get back to bed. Pt's daughter present to assist for the transfer and PEER COUNSELOR to help with bed mobility to supine. OT- Balance Assessment Sitting Balance and Reactions Static Sitting Balance Ability Good Dynamic Sitting Balance Ability Fair Standing Balance and Reactions Static Standing Balance Ability Poor Dynamic Standing Balance Ability Poor M8 OT- IP Objective Assessments Start: 05/17/22 13:10 Freq: Status: Active Protocol: Document 05/17/22 09:27 [facility] (Rec: 05/17/22 13:32 [facility] [id number]) OT-Muscle Tone Assessment Muscle Tone WNL Yes M9 OT- IP Assessment and Plan Start: 05/17/22 13:10 Freq: Status: Active Protocol: Document 05/17/22 09:27 [facility] (Rec: 05/17/22 13:32 [facility] [id number]) OT Summary Assessment and Plan Potential Rehabilitation Potential Good Analytic Complexity at Evaluation Moderate Summary OT Impairments Pain,Strength,Balance, Functional Cognition, Functional Mobility,Grooming, Dressing,Toileting,Bathing, Toilet Transfers,Shower Transfers,Activity Tolerance Progress Towards Goals Slow Progress due to Pain,Slow Progress due to Medical Issues,Slow Progress due to Cognition Assessment Summary Pt MOD complexity and main barriers are pain, steps, having had multiple joint replacements in the past and still having issues with his shoulders for ROM. Pt current needing two person assist for ADL and mobility needs and at this time would be too much for his daughter to assist him and would benefit from skilled rehab. Pt's daughter present for caregiver training and will continue to benefit from more training especially if pt able to progress more. Goals Grooming Goal Independent Dressing Goal Independent Toileting Goal Independent Bathing Goal Independent Toilet Transfer Goal Independent Shower Transfer Goal Independent Patient/Caregiver Education Goal Caregiver Independent Assisting Patient Days to Meet Goals 20 Frequency of Treatment Frequency Of Treatment Once a Day Treatment Plan OT Treatment Plan ADL Training,Functional Cognition Training,Functional Mobility,Patient/Family Education,Discharge Planning Discharge Recommendations OT Discharge Recommendations SNF Rehab,Home vs SNF Other Discharge Recommendations pending progress, caregiver training and medically stability-possibly pt to go home with 24/7 assist and home health-at this time more likely SNF Transportation Needs at Discharge Wheelchair/Cabulance
[2022-05-17 11:32] VITALS: BP 127/51; PULSE 85; RESP 18; TEMP 37.4; O2SAT 93
[2022-05-17] MEDS: HYDROMORPHONE 2 MG TABLET PO ×2 (11:32→23:12)
--- NOTE | 2022-05-17 12:12 | CM.DANOTE ---
Addendum entered by Diamond Reyes R.N. 05/17/22 14:29: Spoke to Mason Jefferson, who stated, daughter concerned about his care needed at home due to pain. Let her know that this DC Field Map Editor could speak to her. Brought Medicare Choice list into room. Spoke to Makenzie. Mentioned home health services, as well as skilled rehab. Daughter stated, I don't really think he will go, because his dogs are at home, and he wants to keep an eye on the grand kids. Discussed home health services, and she and patient are opened to this. Gave them the list of home health agencies to research. Let her and patient know that UR nurse will review to see if he makes inpatient, status, and if so, as plan B, can consider rehab if it is too difficult for her and to manage at home. At this time, pain is an issue, which is effecting mobility. Will follow up with UR today to look at status, and will follow up with patient and daughter regarding home health, and skilled as back up. Daughter is prepared for patient to be discharged tomorrow. Original Note: DCP: Case received, EMR reviewed and met with patient. Introduced self and role. Was able to obtain information regarding patient's baseline activity status at home prior to surgery, as well as his current living situation. DCP assessment completed with information currently available. Patient is a 66 year old male who admitted yesterday morning to the care of the orthopedic team. PCP: Dr. Christopher. Payer: confirmed: Medicare/[employer]. Patient came to the hospital for a surgical procedure. Patient had L4-5, L5-S1 posterior interbody fusion. Patient has history of spinal stenosis. Met with patient in his room. He is alert and oriented, laying in bed, having some pain. Confirmed that he resides in [facility] with his daughter, Makenzie, and son-in-law and grandchildren. He has other children near [place]. At his baseline, he is independent, he has had other surgeries before. He mentioned his just about 2 years ago, and his daughter decided to come and live with him. Patient mentioned that he still drives, and has no DME supplies at home. He mentioned that his daughter is taking a week off of work to stay with him.. P.T. note from yesterday indicated that he is two person assist, but pain is an issue. Patient feels that he has plenty of support at home upon discharge. P: DCP to continue to follow closely for any needs. He will work again with P.T. today. Diamond Reyes RN/Bus Company Manager Discharge Planning/Care Management CM Discharge Assessment Start: 05/17/22 12:10 Freq: Status: Active Protocol: Document 05/17/22 12:10 (Rec: 05/17/22 12:12 [id number]) Discharge Planning Assessment Assigned Contracts Attorney Diamond Reyes RN/Bus Company Manager Advance Directives? Yes Advance Directives on File No History Provided By Patient,Medical Record Prior Living Arrangements House Household Members family,children Type of transporation used prior to Drives own vehicle admit Independent with ADL's Yes Is patient alert and oriented? Yes Caregiver for Another No Barriers to Discharge No Comment Patient indicated, he has plenty of family support. Discharge Plan Home Transportation Arrangement Family Referrals Initiated None needed,Other Additional Comment Will continue to check in with patient and P.T. Whiteboard Updated in Patient Room with Yes name and ext. # of Contracts Attorney Review Status In Process Next Review Type Continued Stay Review Pre-Anesthesia Assessment Start: 05/07/22 08:50 Freq: Status: Complete Protocol: Document 05/07/22 08:[address] [facility] (Rec: 05/07/22 09:[address] [facility] [id number]) Pre-Anesthesia Assessment Patient Information Reviewed Via Phone Assessment Assessment Completed With Patient Diagnostic Results BMP/CMP,CBC,EKG Comment Labs/ECG @ 04/18/22, COVID screen @ 05/14/22 Primary Care Provider Kip Christopher Seen Specialist in Last 12 Months Yes Specialist Seen Orthopedist Primary Language Swazi Preferred Language Swazi Shrimp Header Required No Height 5 ft 10 in Weight 237 lb Body Mass Index (BMI) 34.0 Hearing Ability Normal Visual Assist Glasses Dentition Type Teeth, Natural Present Barriers to Learning Memory Hx Anesthesia Reactions No Hx Family Anesthesia Reaction No Hx Malignant Hyperthermia No Hx Blood Transfusions No Hx Blood Transfusion Reaction No Anesthesia Review Requested No alcohol intake former Alcohol Intake Frequency Other: Stopped 10-15 years ago Smoking Status Former smoker how long ago did patient quit smoking Smoked in his teens Substance Use Type does not use Pain Present Pain Reported Musculoskeletal Symptoms Abnormal Gait,Arthralgias,Back Pain,Difficulty Walking,Joint Pain,Limited Range of Motion, Myalgias History of Falling (Recent or History of Yes ) Patient is completely paralyzed or No completely immobile Mental Status Oriented to own ability Is patient on oxygen? No Does patient have MURPHY/SOB Yes: Chronic for years and years Hx Sleep Apnea Yes CPAP/BIPAP use prescribed and used routinely Currently Taking a Beta Brigette Yes: Metoprolol Can You Climb a Flight of Stairs Without No SOB Hx Chest Pain Yes: I always do Last stress test 02/2020 Hx SOB Yes: Chronic for years and years Hx Syncope or Dizziness No Anti-Coagulant Therapy No Has a Clerk Of Works No Cardiac Testing No Hx Pacemaker/ICD No Pacemaker Rep Required? No Comment [place], busy/active with chores, 5 dogs Diet Type At Home Regular dysphagia No Gastrointestinal Symptoms Reflux Urinary Catheter Present No Hx Urinary Self Catheterization No Diabetes No HgbA1C 5.9 Date 05/02/22 Hx Drug Resistant Organism No Presence of External or Internal Medical Yes: CPAP, left hip, right Devices knee, hernia mesh, left knee prosthesis Have you had any close contact with No someone diagnosed with COVID-19? Received a COVID vaccine? Yes Received all doses? Yes Marital Status / Lives With family,children Prior Living Arrangements House Support System Child/Children Does the Patient Have Assistance After Yes: Daughter will care for pt Surgery at [place] Patient Discharge Plan Description Return Home Comment Pt advised 2 day length of stay per surgeon Feels Safe in Current Environment Yes Been Physically Hurt or Threatened By a No Person in Current Environment Do you have thoughts of harming yourself None or others? Are you currently considering suicide? No Do you have a plan to hurt yourself or No Plan others? Do You Have Any Spiritual Beliefs That No May Affect Your HC Choices? Do You Have Any Cultural Practices That No May Affect Your HC Choices? Comment Jaden Who Can We Speak to About Patient's Care Family, friends Identifying Code for Release of Patient Declines to issue Information Health Care Proxy/Next of Kin Makenzie (daughter) Health Care Proxy Emergency Contact Name Amita (daughter) Emergency Contact Advance Directives? Yes Advance Directives on File No Power of Advanced Manufacturing Consultant Yes Power of Advanced Manufacturing Consultant Name Makenzie (daughter) Power of Advanced Manufacturing Consultant PAC Instructions Bring CPAP/BIPAP,Durable medical equipment,Medications to take/avoid,Nasal antibiotic ,No ETOH/petroleum product on skin DOS,NPO,Post-op transportation,Sturdy shoes/ comfortable clothes,Do not bring valuables and remove jewelry
[2022-05-17] MEDS: HYDROCODONE/ACET 10/325 TABLET 1 TAB PO ×2 (13:36→20:02)
--- NOTE | 2022-05-17 15:11 | PT-IP ANOTE ---
checked on pt x 2 and pt with c/o 06/07 and refused PT. stated that he just wanted to rest. informed daughter regarding possible SNF due to pt's decrease mobility progress and activity tolerance. informed case reviewer and said that they talked with the daughter regarding pt's options.
[2022-05-17 15:50] VITALS: BP 111/59; PULSE 88; RESP 16; TEMP 35.4; O2SAT 93
--- NOTE | 2022-05-17 19:39 | PC.NURSE ---
Pain control issues this am. PA made aware. She adjusted pain meds, added vistaril scheduled. Still needed the vicodin and dilaudid alternated. Then this afternoon pt was found oob beside it. He appeared sl disoriented but was oriented when question. He stated he thought he could get up whenever he wanted. Bed alarm on but had not rang. Bed alarm checked to be sure it was working. Pt instructed to call for assist. Must be cued to follow his lami precautions. Pt refused to allow moser to be removed due to the amount of pain he has been having. SI can't deal with pain and peeing at the same time. Pt feels his pain has been in better control this afternoon. Hopefully will cont to improve.
[2022-05-17 20:00] VITALS: BP 120/57; PULSE 78; RESP 16; TEMP 37.1; O2SAT 95
[2022-05-17] MEDS: SODIUM CHLORIDE 0.9% FLUSH 10 ML IV (20:02)
[2022-05-17] MEDS: SENNOSIDES 8.6 MG TABLET 17.2 MG PO (20:02)
[2022-05-17 20:26] VITALS: O2SAT 95
--- NOTE | 2022-05-17 21:45 | PC.NURSE ---
Patient is alert and oriented except did not know day of month and has some forgetfulness regarding events of today. Breath sounds CTA; using home CPAP w/oxygen bled in at 4L/min with sat of 95% and desats when asleep due to mouth breathing. HRR. Denies nausea. BT present and abdomen is soft; passing flatus. Indwelling catheter is patent; patient refused catheter discontinuation related to pain control issues and poor mobility. Is able to move himself in bed. Gait not assessed at this time. Dressing to back is CDI. Wearing bilateral foot SCD's. Complained of 6/10 back pain at time of assessment and was medicated with vicodin and is currently asleep. Fall risk score is high and bed alarm is activated.
[2022-05-18] VITALS (9 sets, daily range): BP systolic 108–120; BP diastolic 57–81; PULSE 78–94; RESP 16–20; TEMP 36.3–38.4; O2SAT 93–95
[2022-05-18] MEDS: hydrOXYzine pamoate 25 MG CAPSULE PO ×5 (05:36→20:47)
[2022-05-18] MEDS: PANTOPRAZOLE DR 20 MG TABLET PO (05:37)
[2022-05-18] MEDS: HYDROCODONE/ACET 10/325 TABLET 1 TAB PO ×3 (05:37→20:49)
--- NOTE | 2022-05-18 07:24 | P.PN_ITS ---
Subjective Subjective Date Patient Seen: 05/18/22 Time Patient Seen: 07:24 Interval history: Pt sitting up in bed, states he is much more comfortable today. Per chart notes from yesterday, pt refused PM PT due to pain and refused several doses of Vistaril. Moser catheter remains in; per nursing, pt refused to have it discontinued yesterday. Discussed w/ pt that it was important for him to take medication for pain, have catheter removed, and work w/ PT so that he can progress towards homegoing. Exam Vital Signs (past 8 hours): - 05/18/22 05:46 Temperature 97.3 F L Pulse Rate 78 Respiratory Rate 20 Blood Pressure 111/81 Pulse Oximetry 94 Oxygen Flow Rate 4 Oxygen Delivery Method CPAP Oxygen Flow Rate 4 Narrative Exam Narrative: 5/5 strength in hip flexors, quadriceps, hamstrings, DF, PF, EHL bilaterally. Sensation to light touch intact in BLE. Calves soft, compressible, nontender and without palpable cords or masses. Low back dressing placed intraoperatively is CDI. Objective Labs Result Diagrams: 05/17/22 06:17 [facility] Medical History Anxiety Arthritis Chest pain Chronic shortness of breath DDD (degenerative disc disease) Depression (04/2020) GERD (gastroesophageal reflux disease) HLD (hyperlipidemia) HTN (hypertension) Hyperactive Kidney stones OCD (obsessive compulsive disorder) GERARDO on CPAP Osteoarthritis Seasonal allergies Surgical History (Updated 05/17/22 @ 08:42 by Leyla Sparrow PA-C) History of arthroplasty of left knee (10/04/21) History of arthroscopy of left shoulder History of arthroscopy of right shoulder History of esophagogastroduodenoscopy (EGD) History of surgery History of total left hip replacement (~2009) Hx of colonoscopy Hx of hernia repair Status post right partial knee replacement (~2017) Social History household members: family and children Smoking Status: Former smoker alcohol intake: former Assessment & Plan Post-op Assessment and plan (1) S/P lumbar fusion: Assessment and Plan narrative: D/C moser. Continue multimodal pain control. PT today, home vs SNF based on progress. (2) Acute postoperative anemia due to expected blood loss: Assessment and Plan narrative: No intervention needed at this time. (3) Obesity (BMI 30.0-34.9): Postoperative Procedures: Procedures Operation Date: 05/16/22 07:45 Actual Procedure Side Surgeon p L4-5, L5-S1 TLIF w. posterior instrumentation -Robot eSb Ramírez MD Postoperative day: 2 Quality VTE Deep Vein Thrombosis/Pulmonary Embolism Present on Admission: No
[2022-05-18] MEDS: CHOLESTYRAMINE/ASPARTAME 4 GM PACK PO (09:23)
[2022-05-18] MEDS: HYDROMORPHONE 2 MG TABLET PO ×2 (09:23→17:59)
[2022-05-18] MEDS: PARoxetine 20 MG TABLET 40 MG PO (09:23)
[2022-05-18] MEDS: DOCUSATE 100 MG CAPSULE PO ×2 (09:23→20:47)
[2022-05-18] MEDS: METOPROLOL ER 50 MG TABLET PO (09:23)
[2022-05-18] MEDS: SODIUM CHLORIDE 0.9% FLUSH 10 ML IV ×2 (10:00→20:47)
--- NOTE | 2022-05-18 11:10 | PT.IPTN ---
Current Diagnoses Acute posthemorrhagic anemia (05/16/22) Obesity, unspecified (05/16/22) Spondylolisthesis, lumbar region (05/16/22) Spinal stenosis, lumbar region without neurogenic claudication (05/16/22) Arthrodesis status (05/16/22) Surgery Performed Operation Date: 05/16/22 07:45 Actual Procedures p L4-5, L5-S1 TLIF w. posterior instrumentation -Robot - Seb Ramírez MD Physical Therapy Treatment Note M2 PT-IP Current Condition Start: 05/16/22 16:31 Freq: NEEDED Status: Active Protocol: Document 05/16/22 15:30 AB (Rec: 05/16/22 16:43 AB [id number]) Physical Therapy Current Condition Current Condition Evaluation Date 05/16/22 Treatment Diagnosis s/p L4-5, L5-S1 TLIF; difficulty in walking Onset Date 05/16/22 M3 PT-IP Subjective Start: 05/16/22 16:31 Freq: NEEDED Status: Active Protocol: Document 05/18/22 11:10 DLM (Rec: 05/18/22 11:29 DLM [id number]) Subjective Physical Therapy Visit Type Type Treatment Note Visit Start Time 10:30 Visit Stop Time 11:10 Total Visit Minutes 40 Number of TENNIS COACH Visits 0 Physical Therapy Visit Comments Patient Comments He does not remember yesterday . His head feels a little fuzzy today. Patient Goals Get strong enough to go home M4 PT-IP Mobility and Gait Start: 05/16/22 16:31 Freq: NEEDED Status: Active Protocol: Document 05/18/22 11:10 DLM (Rec: 05/18/22 11:29 DLM [id number]) PT-Bed Mobility Assessment Rolling Type of Rolling Log Rolling Level of Assist Contact Guard Assistance Supine to Sit Supine to Sit Minimal Assistance,Moderate Assistance,Bedrails Scooting Scooting to Edge of Bed Standby Assistance PT-Transfer Assessment Sit to and From Stand Sit to and from Stand Minimal Assistance,Use of Upper Extremities Equipment Transfer Assistive Device Gait Belt,Front Wheeled Walker Transfers Transfer Destination Chair Transfer Technique Stand Step Pivot Transfer Ability Level of Assist Contact Guard Assistance, Minimal Assistance,Use of Upper Extremities Comments Mobility Comments Pt up to recliner with his Daughter visiting. Positioned for pain management in the recliner. Pt instructed to have staff assist when getting up. Gait Assessment Gait Gait Assistance Required: Contact Guard Assist Distance (Feet) 12 Assistive Devices Assistive Device Gait Belt,Front Wheeled Walker Gait Deviations General Gait Pattern Step-to Gait Factors Limiting Gait Function Factors Limiting Gait Function Decreased Activity Tolerance, Decreased Strength,Pain,Poor Balance Comments Gait Comments Pace of gait is slow but he is managing his pain. He needs occasional reminders to take deep breaths but often reminds himself. He reports some intermitten cramping in right hip area during standing/gait. He has increased left LE pain down to his calf during sit to stand that resolves once upright. Pt found that pushing up with right hand from sitting surfaces is less painful than using left UE. His posture is erect in standing with a mild tendency to lean post but no losses of balance during this visit. PT-Balance Assessment Sitting Balance and Reactions Static Sitting Balance Ability Good Dynamic Sitting Balance Ability Fair Standing Balance and Reactions Static Standing Balance Ability Fair Dynamic Standing Balance Ability Fair Device Used FWW M5 PT-IP Objective Assessments Start: 05/16/22 16:31 Freq: NEEDED Status: Active Protocol: Document 05/16/22 15:30 AB (Rec: 05/16/22 16:43 AB [id number]) Orientation Orientation/Cognition Level of Alertness Lethargic Orientation Name,Place,Situation Language Function Ability No Deficits Noted Safety Awareness Decreased Safety Awareness Memory Description Short Term Impaired Gross Range of Motion Lower Extremity ROM Assessment Within Functional Limits Strength Lower Extremity Strength Assessment Left Impaired Hip 3+/5 Knee 3+/5 Sensation Assessment Sensation Gross Sensation WNL Muscle Tone Muscle Tone WNL Yes M6 PT-IP Treatment Start: 05/16/22 16:31 Freq: NEEDED Status: Active Protocol: Document 05/18/22 11:10 DLM (Rec: 05/18/22 11:29 [facility] [id number]) Physical Therapy Treatment Exercises Exercises Ankle Pumps Education Education Provided Precautions,Safety Other Treatments Other Treatment Performed His Daughter is present this visit and participates in therapy session M7 PT-IP Assessment and Plan Start: 05/16/22 16:31 Freq: NEEDED Status: Active Protocol: Document 05/18/22 11:10 DLM (Rec: 05/18/22 11:29 [facility] [id number]) PT Summary Assessment and Plan Potential Rehabilitation Potential Good Status of Condition at Evaluation Evolving Summary Impairments Pain,ROM,Strength,Balance,Bed Mobility,Transfers,Gait, Activity Tolerance Progress Towards Goals Progressing Toward Goals Assessment Summary Luis is demonstrating good progress this visit. He appears to be more alert and attending to his environment. He still feels the pain medication makes him a little foggy. He can follow instructions for safe mobility . He was able to get out of bed and ambulate a short distance in the room with the FWW with one person assist. Pt left sitting up in the recliner with his Daughter visiting. He has left LE radicular pain during sit- stand but it resolves once upright. He has the least amount of pain in standing and during gait per pt report. Will continue to work towards pt goal of discharge home with his Daughter to assist. Recommend home health PT if he discharges home. He will need to be able to ambulate household distances and do stairs before he will be ready for discharge home. Goals Bed Mobility Goal Standby Assistance Transfer Goal Standby Assistance,Front Wheeled Walker Gait Goal Standby Assistance,Front Wheel Walker Gait Distance 200 Other Goals up/down 2 platform steps using FWW CGA Days to Meet Goals 10 Frequency of Treatment Frequency Of Treatment Twice a Day Treatment Plan Physical Therapy Treatment Plan Bed Mobility Training,Transfer Training,Gait Training, Therapeutic Exercise,Balance Retraining,Post Op Education, Discharge Planning,Hot or Cold Pack,Neuromuscular Re-ed, Coordination Retraining,Manual Therapy Precautions Lumbar Precautions Log Roll,No Twisting,Limit Bending,Lifting Restriction of 10 lbs,Gait Belt above Incisional Area Other Precautions monitor cognitive changes with use of pain medications Recommendations To Nursing Amount of Assist Needed 1 Person Assist Discharge Recommendations PT Discharge Recommendations Home with 20/04 Assist Available,Home Health,Home vs SNF Transportation Needs at Discharge Private Vehicle,Wheelchair/ Cabulance
--- NOTE | 2022-05-18 14:43 | CM.DPC ---
DCP Cont: Was informed that patient did do better with P.T. Daughter, Makenzie, is concerned about taking care of him at home, since he may need to have an extra person for transfers, and if he went home with home health, he would not get daily P.T. Met with patient in his room, daughter had already gone home. Asked patient about alf, and he stated, it's up to my daughter. Called Makenzie on her cell, and she agrees that patient would do better at short term rehab before going home. Asked her to make three choices of facilities for her father, as is listed on the Medicare Choice List. Daughter asked if referrals can be placed to [facility] in [place] as first choice (it's close to home), [facility] second, and [facility] as third. Sent referrals to all three facilities. Left message with Nohemi at [facility], sent her the referral. Also, faxed referral to [facility], and left Renee in admissions a message. Faxed [facility] ,did speak to Quiana in admissions, and she will review. Faxed over face sheet, operative report, H&P, and P.T. notes to all three facilities. P: DCP to continue to follow. At this time, alf is the plan, but he will not be eligible until Thursday, 05/20. If home is the plan and he improves, can go home tomorrow with home health. Diamond Reyes, RN/Patient Relations Specialist
[2022-05-18] MEDS: SENNOSIDES 8.6 MG TABLET 17.2 MG PO (20:47)
[2022-05-19] VITALS: BP 105/60; PULSE 62; RESP 18; TEMP 36.1; O2SAT 96
[2022-05-19] MEDS: HYDROCODONE/ACET 10/325 TABLET 1 TAB PO ×3 (06:00→14:25)
[2022-05-19] MEDS: PANTOPRAZOLE DR 20 MG TABLET PO (06:00)
[2022-05-19] MEDS: hydrOXYzine pamoate 25 MG CAPSULE PO ×2 (06:00→07:59)
[2022-05-19 06:02] VITALS: BP 110/64; PULSE 78; RESP 20; TEMP 36.3; O2SAT 94
--- NOTE | 2022-05-19 07:29 | P.PN_ITS ---
Subjective Subjective Date Patient Seen: 05/19/22 Time Patient Seen: 07:29 Interval history: Pt appears to be making progress w/ PT and pain control. Still has catheter in place. Says he was 'out of it' yesterday and is not sure what his daughter and care management discussed in terms of disposition. Exam Vital Signs (past 8 hours): - 05/19/22 00:00 05/19/22 06:02 Temperature 97.0 F L 97.4 F L Pulse Rate 62 78 Respiratory Rate 18 20 Blood Pressure 105/60 110/64 Pulse Oximetry 96 94 Oxygen Flow Rate 0 Oxygen Delivery Method CPAP Oxygen Flow Rate 0 Narrative Exam Narrative: Moser remains in place, draining adequate amounts of clear, bruce urine. 5/5 strength in quadriceps, hamstrings, DF, PF, EHL bilaterally. Sensation intact in BLE. Calves soft, compressible, nontender and without palpable cords or masses. Low back dressing placed intraoperatively is CDI. Objective Labs Result Diagrams: 05/17/22 06:17 [facility] Medical History Anxiety Arthritis Chest pain Chronic shortness of breath DDD (degenerative disc disease) Depression (04/2020) GERD (gastroesophageal reflux disease) HLD (hyperlipidemia) HTN (hypertension) Hyperactive Kidney stones OCD (obsessive compulsive disorder) GERARDO on CPAP Osteoarthritis Seasonal allergies Surgical History (Updated 05/17/22 @ 08:42 by Leyla Sparrow PA-C) History of arthroplasty of left knee (10/04/21) History of arthroscopy of left shoulder History of arthroscopy of right shoulder History of esophagogastroduodenoscopy (EGD) History of surgery History of total left hip replacement (~2009) Hx of colonoscopy Hx of hernia repair Status post right partial knee replacement (~2017) Social History household members: family and children Smoking Status: Former smoker alcohol intake: former Assessment & Plan Post-op Assessment and plan (1) S/P lumbar fusion: Assessment and Plan narrative: Spoke to JALYN Michel who says she spoke w/ daughter yesterday and plan is for d/c to SNF tomorrow d/t pts need for help w/ mobility and pain control issues. D/c moser today to ensure pt is able to void independently. (2) Acute postoperative anemia due to expected blood loss: Assessment and Plan narrative: VSS, no intervention needed. (3) Obesity (BMI 30.0-34.9): Postoperative Procedures: Procedures Operation Date: 05/16/22 07:45 Actual Procedure Side Surgeon p L4-5, L5-S1 TLIF w. posterior instrumentation -Robot Seb Ramírez MD Postoperative day: 3 Quality VTE Deep Vein Thrombosis/Pulmonary Embolism Present on Admission: No
[2022-05-19 07:34] VITALS: BP 118/67; PULSE 67; RESP 16; TEMP 35.8; O2SAT 97
[2022-05-19 07:59] VITALS: BP 118/67; PULSE 67
[2022-05-19] MEDS: PARoxetine 20 MG TABLET 40 MG PO (07:59)
[2022-05-19] MEDS: METOPROLOL ER 50 MG TABLET PO (07:59)
[2022-05-19] MEDS: DOCUSATE 100 MG CAPSULE PO (07:59)
[2022-05-19] MEDS: SODIUM CHLORIDE 0.9% FLUSH 10 ML IV (08:40)
[2022-05-19 09:28] VITALS: PULSE 64
--- NOTE | 2022-05-19 11:01 | PT.IPTN ---
Current Diagnoses Acute posthemorrhagic anemia (05/17/22) Obesity, unspecified (05/17/22) Spondylolisthesis, lumbar region (05/17/22) Spinal stenosis, lumbar region without neurogenic claudication (05/17/22) Arthrodesis status (05/17/22) Surgery Performed Operation Date: 05/16/22 07:45 Actual Procedures p L4-5, L5-S1 TLIF w. posterior instrumentation -Robot - Seb Ramírez MD Physical Therapy Treatment Note M2 PT-IP Current Condition Start: 05/16/22 16:31 Freq: NEEDED Status: Active Protocol: Document 05/19/22 09:31 SP (Rec: 05/19/22 13:39 SP [id number]) Physical Therapy Current Condition Current Condition Evaluation Date 05/16/22 Treatment Diagnosis s/p L4-5, L5-S1 TLIF; difficulty in walking Onset Date 05/16/22 M3 PT-IP Subjective Start: 05/16/22 16:31 Freq: NEEDED Status: Active Protocol: Document 05/19/22 09:31 SP (Rec: 05/19/22 13:39 SP [id number]) Subjective Physical Therapy Visit Type Type Treatment Note Visit Start Time 10:35 Visit Stop Time 11:01 Total Visit Minutes 53 Notes Pt required split tx (0931- 0950 & [id number]) due to tiring recovery and pt requested step assess and daughter CGT late am to see if can go home vs SNF. Daughter completed CGT in later am with pt. Vitals: Supine BP 121/53 HR 73 Number of BRAND PROTECTION MANAGER Visits 1 Physical Therapy Visit Comments Patient Comments Pt agreeable to mobilizing, didn't know about chart discussion SNF DC plan and previous mobility decreased strength and required Max A x2 prior tx and daughter stated can't provided that much assist. Patient Goals Get strong enough to go home, try more gait and check step mgt. M4 PT-IP Mobility and Gait Start: 05/16/22 16:31 Freq: NEEDED Status: Active Protocol: Document 05/19/22 09:31 SP (Rec: 05/19/22 13:39 SP [id number]) PT-Bed Mobility Assessment Rolling Type of Rolling Log Rolling Level of Assist Contact Guard Assistance, Minimal Assistance,1 Person Assistance Supine to Sit Supine to Sit Moderate Assistance,1 Person Assistance Sit to Supine Sit to Supine Moderate Assistance,1 Person Assistance Scooting Scooting to Edge of Bed Standby Assistance,Contact Guard Assistance PT-Transfer Assessment Sit to and From Stand Sit to and from Stand Contact Guard Assistance, Minimal Assistance,1 Person Assistance,Use of Upper Extremities Equipment Transfer Assistive Device Gait Belt,Front Wheeled Walker Orthotic/Prosthetic Devices or Brace: No Transfers Transfer Destination Bed,Chair Transfer Technique pt ambulated w/ FWW Transfer Ability Level of Assist Contact Guard Assistance, Minimal Assistance,1 Person Assistance,Use of Upper Extremities Comments Mobility Comments Pt supine in bed when arrived. Completed LR L w/ pull from therapist hand and support upperback, LUE push on bed for trunk right to sit Mod A x1, scoot CGA. Sit>stand Min A x1 with cues hip hinge, quad fac/ knee extension and upright posturing to full stand. Pain L hip and knee 3/10 pre mob and brief 8/10 LB and L hip until stand then back 3/10 LB. Progressed ambulated around room x2 laps 60 ft before required sit rest and come back little bit to work with daughter coming in and see if can do 2 PF step mgt, wishes to go home if able. Pt up in chair all needs in reach. BRAND PROTECTION MANAGER returned completed CGT with daughter CG- Min A x1, donned GB to upper back, STS from chair w/ FWW forward gait 5 ft to PF step ascend/descend x2 w/ FWW MIn A for trunk stability and support FWW safe position/ stabilize, RLE lead ascend with Max cues sequencing required BLE/FWW and straight back hip hinge with good demonstration, BRAND PROTECTION MANAGER SBA, physical assist provided by daughter. Pt returned to L side bed, Min A to sit cues reach back but back, Mod A for sit> supine LE support into bed and cues for maintaining spinal alignment LR on to back . Reverse LR L>sit Mod A x1 same earlier, STS/ SPT to chair/stand to sit CG- Cesario w/ FWW. Pt had call light and all needs in reach. Pt requested use of bathroom, pt call light TRACK HELPER for support with daughter if needed bathroom use, TRACK HELPER took over rest mobility. Gait Assessment Gait Gait Assistance Required: Contact Guard Assist Distance (Feet) 30 Able to Maintain Weight Bearing Status Yes During Gait Assistive Devices Assistive Device Gait Belt,Front Wheeled Walker Orthotic/Prosthetic Devices or Brace: No Gait Deviations General Gait Pattern Antalgic,Decreased Stride Length,Decreased Feet Clearance,Flexed Trunk,Step-to Gait Factors Limiting Gait Function Factors Limiting Gait Function Decreased Activity Tolerance, Decreased Strength,Difficulty Following Directions,Limited Range of Motion,Pain,Poor Balance,Poor Safety Awareness Comments Gait Comments step to initially, then step over step, smaller stride. Cued upright posturing, obstacle mgt and sequencing for safety need of 1 person during mobility. Pt had call light and all needs in reach. Discussed with pt and daughter improved mobility today, both agree wanting to go home with daughter with HHPT. BRAND PROTECTION MANAGER notified nursing and care mgt pt is ok to return home with daughter with HHPT. Stair Climbing Assessment Evaluation Level of Assist On Stairs Contact Guard Assistance, Minimal Assistance,1 Person Assistance Devices Stair Climbing Assistive Devices Front Wheel Walker Technique/Endurance Stair Climbing Direction Ascend and Descend Stair Climbing Technique Step to Step Number of Steps Climbed 1 Stair Climbing Set # Repetitions (reps) 2 Comments Stair Climbing Comments see mobility comments PT-Balance Assessment Sitting Balance and Reactions Static Sitting Balance Ability Good Dynamic Sitting Balance Ability Fair Standing Balance and Reactions Static Standing Balance Ability Good Dynamic Standing Balance Ability Fair Device Used FWW M5 PT-IP Objective Assessments Start: 05/16/22 16:31 Freq: NEEDED Status: Active Protocol: Document 05/16/22 15:30 AB (Rec: 05/16/22 16:43 AB [id number]) Orientation Orientation/Cognition Level of Alertness Lethargic Orientation Name,Place,Situation Language Function Ability No Deficits Noted Safety Awareness Decreased Safety Awareness Memory Description Short Term Impaired Gross Range of Motion Lower Extremity ROM Assessment Within Functional Limits Strength Lower Extremity Strength Assessment Left Impaired Hip 3+/5 Knee 3+/5 Sensation Assessment Sensation Gross Sensation WNL Muscle Tone Muscle Tone WNL Yes M6 PT-IP Treatment Start: 05/16/22 16:31 Freq: NEEDED Status: Active Protocol: Document 05/19/22 09:31 SP (Rec: 05/19/22 13:39 SP [id number]) Physical Therapy Treatment Other Treatments Other Treatment Performed His Daughter is present second have of this visit and participates in therapy session M7 PT-IP Assessment and Plan Start: 05/16/22 16:31 Freq: NEEDED Status: Active Protocol: Document 05/19/22 09:31 SP (Rec: 05/19/22 13:39 SP [id number]) PT Summary Assessment and Plan Potential Rehabilitation Potential Good Status of Condition at Evaluation Evolving Summary Impairments Pain,ROM,Strength,Balance,Bed Mobility,Transfers,Gait, Activity Tolerance Progress Towards Goals Progressing Toward Goals,Slow Progress due to Pain,Slow Progress due to Activity Tolerance Assessment Summary Pt improved decrease assist required, able to mobilize with daughter Mod A bed mob, CG- Min A transfers and gait w / FWW. Mod cues for safety sequencing and support FWW on PF step. BRAND PROTECTION MANAGER recommending 20/04 home with daughter when medically cleared with HHPT to progress strength toward functional independence. Goals Bed Mobility Goal Standby Assistance Transfer Goal Standby Assistance,Front Wheeled Walker Gait Goal Standby Assistance,Front Wheel Walker Gait Distance 200 Other Goals up/down 2 platform steps using FWW CGA Days to Meet Goals 10 Frequency of Treatment Frequency Of Treatment Twice a Day Treatment Plan Physical Therapy Treatment Plan Bed Mobility Training,Transfer Training,Gait Training, Therapeutic Exercise,Balance Retraining,Post Op Education, Discharge Planning,Hot or Cold Pack,Neuromuscular Re-ed, Coordination Retraining,Manual Therapy Other Recommendations and Next Treatment LE ex, 5 x STS, bed mob, gait Focus further distance w/ FWW. Precautions Lumbar Precautions Log Roll,No Twisting,Limit Bending,Lifting Restriction of 10 lbs,Gait Belt above Incisional Area Other Precautions Pt recalled 2/3 precautions, missed no heavy lifting. Recommendations To Nursing Amount of Assist Needed 1 Person Assist Discharge Recommendations PT Discharge Recommendations Home with 20/04 Assist Available,Home Health Equipment Needed for Home Before Daughter acquired BSC for home Discharge . Transportation Needs at Discharge Private Vehicle
--- NOTE | 2022-05-19 11:28 | CM.DPC ---
Addendum entered by Diamond Reyes R.N. 05/19/22 15:14: Called February at [facility] and updated her that patient went home. Did not hear back from [facility]. Left a message with Quiana at [facility] as well, since referral was sent to her as well. Original Note: DCP Cont: Original plan was for patient to go to skilled rehab tomorrow, updated CRHISTIAN Mayer, this am, since tomorrow would be the third Medicare midnight. Left a message with Nohemi at [facility], and have not heard back. Did speak to Shahnaz at [facility] who stated, could accept, but would need updated COVID booster. Was going to speak to patient about getting booster, and found out from P.T. that patient improved today, daughter in for caregiver training, and feels that she can manage home. Asked about home health, does not feel that they need it. Patient needs to void, but ready to go home today. Called over to CHRISTIAN Berman, and let drug safety assistant know that home is now the plan, patient just had catheter removed, needs to void. He is wanting to go home today. She will come over later and see patient for discharge. P: DCP to continue to follow. Plan now is home with daughter, pending voiding. Diamond Reyes RN/Film Composer
--- NOTE | 2022-05-19 11:45 | OT.IP.TRT ---
Current Diagnoses Acute posthemorrhagic anemia (05/17/22) Obesity, unspecified (05/17/22) Spondylolisthesis, lumbar region (05/17/22) Spinal stenosis, lumbar region without neurogenic claudication (05/17/22) Arthrodesis status (05/17/22) Surgery Performed Operation Date: 05/16/22 07:45 Actual Procedures p L4-5, L5-S1 TLIF w. posterior instrumentation -Robot - Seb Ramírez MD Occupational Therapy Treatment Note M2 OT-IP Current Condition Start: 05/17/22 13:10 Freq: Status: Active Protocol: Document 05/17/22 09:27 [facility] (Rec: 05/17/22 13:32 [facility] [id number]) Occupational Therapy Current Condition Current Condition Evaluation Date 05/17/22 Treatment Diagnosis S/p L4-5, L5-S1 TLIF Diagnosis Onset Date 05/16/22 Post Operative Precautions Lumbar Precautions Log Roll,No Twisting,Limit Bending,Lifting Restriction of 10 lbs,Gait Belt above Incisional Area M3 OT- IP Subjective and Pain Start: 05/17/22 13:10 Freq: Status: Active Protocol: Document 05/19/22 12:36 [facility] (Rec: 05/19/22 12:41 [facility] [id number]) OT- Subjective Occupational Therapy Visit Type Type Progress Note Visit Start Time 11:28 Visit Stop Time 11:45 Total Visit Minutes 17 Notes Pt declined any out of chair activity at this time but requests education on LB dressing. M4 OT- IP ADL's Start: 05/17/22 13:10 Freq: Status: Active Protocol: Document 05/19/22 12:36 [facility] (Rec: 05/19/22 12:41 [facility] [id number]) OT [id number] Comments OT Self-Feeding Comments not meal time OT ADL-Grooming Comments OT Grooming Comments pt declined OT ADL-Oral Care Comments Oral Care Comments pt declined OT ADL-Dressing Comments OT Dressing Comments educated pt and demonstrated LB dressing with sock aide and curing oven attendant. PT's daughter present and planned to purchase necessary items. Pt declined practice for LB dressing at this time. OT ADL-Toileting Comments OT Toileting Comments not performed OT ADL-Bathing Comments OT Bathing Comments not performed M5 OT- IP IADL's Start: 05/17/22 13:10 Freq: Status: Active Protocol: Document 05/17/22 09:27 [facility] (Rec: 05/17/22 13:32 [facility] [id number]) OT-Instrumental Activities of Daily Living Deficits IADL Deficits Identified Deficits Home Safety Awareness Awareness of Need for Assistance at Home Good Awareness Home Safety Comments Pt a bit groogy and would need assist to safety, ADL and mobility needs at this time Meal Preparation Meal Preparation Caregiver Provides Assist Patient Consumer Marketer Patient Consumer Marketer Caregiver Provides Assist M6 OT- IP Functional Cognition Start: 05/17/22 13:10 Freq: Status: Active Protocol: Document 05/17/22 09:27 [facility] (Rec: 05/17/22 13:32 [facility] [id number]) Cognitive Factors Limiting Selfcare Function Cognitive Ability Level of Alertness Alert,Drowsy Patient Orientation Name,Place,Situation Attention Span Ability Capable of Focused Attention, Capable of Sustained Attention Ability to Follow Commands Able to Follow One Step Commands with Increased Time, Able to Follow One Step Commands with Repetition Memory Description Short Term Impaired Safety Awareness Decreased Recall of Precautions,Decreased Ability to Apply Precautions Cognitive Comments Cognitive Assessment Comments Pt a bit groggy and not able to recall his back precautions and needing simple commands to follow. OT- Vision and Hearing OT- Hearing Assessment OT- Hearing Assessment WFL OT- Vision Assessment Visual Acuity Glasses All The Time M7 OT- IP Mobility and Balance Start: 05/17/22 13:10 Freq: Status: Active Protocol: Document 05/17/22 09:27 [facility] (Rec: 05/17/22 13:32 [facility] [id number]) OT- Bed Mobility Assessment Sit to Supine Sit to Supine Assist Maximum Assistance,2 Person Assistance OT-Transfer Assessment Sit to and From Stand Sit to and from Stand Minimal Assistance,Maximum Assistance,2 Person Assistance Transfers Transfer Ability Moderate Assistance,2 Person Assistance Technique Transfer Destination Bed,Chair Transfer Technique Stand Step Pivot Devices Transfer Assistive Devices Gait Belt,Front Wheeled Walker Comments Mobility Comments MAXAx1 and DASHAWN x1 to stand to FWW and MODA X2 with FWW for balance, to guide the FWW and to ehlp ease pt back donw to the bed. MAX AX2 to help get back to bed. Pt's daughter present to assist for the transfer and FUSE CUTTER to help with transfer back to bed. OT- Balance Assessment Sitting Balance and Reactions Static Sitting Balance Ability Good Dynamic Sitting Balance Ability Fair Standing Balance and Reactions Static Standing Balance Ability Poor Dynamic Standing Balance Ability Poor M8 OT- IP Objective Assessments Start: 05/17/22 13:10 Freq: Status: Active Protocol: Document 05/17/22 09:27 [facility] (Rec: 05/17/22 13:32 [facility] [id number]) OT-Muscle Tone Assessment Muscle Tone WNL Yes M9 OT- IP Assessment and Plan Start: 05/17/22 13:10 Freq: Status: Active Protocol: Document 05/19/22 12:36 [facility] (Rec: 05/19/22 12:41 [facility] [id number]) OT Summary Assessment and Plan Potential Rehabilitation Potential Good Analytic Complexity at Evaluation Moderate Summary OT Impairments Pain,Strength,Balance, Functional Cognition, Functional Mobility,Grooming, Dressing,Toileting,Bathing, Toilet Transfers,Shower Transfers,Activity Tolerance Progress Towards Goals Slow Progress due to Pain,Slow Progress due to Medical Issues,Slow Progress due to Cognition Assessment Summary Pt educated on LB dressing with sock aid and curing oven attendant for socks, underwear and pants. Pt declined to perform and pharmacy waiting to speak with pt. Will continue to follow. Goals Grooming Goal Independent Dressing Goal Independent Toileting Goal Independent Bathing Goal Independent Toilet Transfer Goal Independent Shower Transfer Goal Independent Patient/Caregiver Education Goal Caregiver Independent Assisting Patient Days to Meet Goals 20 Frequency of Treatment Frequency Of Treatment Once a Day Treatment Plan OT Treatment Plan ADL Training,Functional Cognition Training,Functional Mobility,Patient/Family Education,Discharge Planning Discharge Recommendations OT Discharge Recommendations Home with Assistance Transportation Needs at Discharge Private Vehicle
--- NOTE | 2022-05-19 12:44 | P.DS_ITS ---
History of Present Illness History of Present Illness Date Patient Seen: 05/19/22 Time Patient Seen: 07:00 Chief complaint: L4-5, L5-S1 Tlif w/ Posterior Narrative: Operative Date/Time/Diagnoses Date of procedure: 05/16/22 Time of procedure: 07:45 Pre-op diagnosis: 1. L4-5, L5-S1 spinal stenosis 2. Epidural lipomatosis with spinal stenosis 3. Lumbar spondylosis with radiculopathy Post-op diagnosis: same Procedure & Clinicians Procedure: 1. L4-5, L5-S1 Postero-lateral and posterior interbody fusion 2. L4-5, L5-S1 interbody cage placement. 3. L4-5, L5-S1 decompressive laminectomy with bilateral facetecomies 4. L4-5, L5-S1 Posterior segmental instrumentation 5. [place] of bone marrow from iliac crest 6. Utilization of microsurgical technique and operating microscope 7. Utilization of robotic assisted navigation Same procedure as scheduled: Yes Indications: Patient has been having chronic back pain and worsening lumbar radiculopathy and symptoms of neurogenic claudication. Patient failed multiple conservative management with worsening pain weakness and numbness in his lower extremity.? Patient has been having difficulty performing activity of daily living.? After discussing risks benefits of treatment options, patient elected proceed with surgery. Surgeon: Seb Ramírez Consulting Property Manager: Leyla Sparrow Click Yes if Unassisted: No Anesthesia Type: General Operative Notes Closure Type: primary Specimen(s): none sent Prosthetic devices, grafts, tissues, transplants, or devices: Globus CREO MIS screws, Rise cages Applied: catheter Estimated Blood Loss (mL): 550 Blood products transfused: none Discharge Providers Provider Date of admission: 05/17/22 13:05 Discharge Date: 05/19/22 Primary care physician: Kip Christopher DO Consults: 05/16/22 13:56 Consult to Occupational Therapy Evaluate & Treat Comment: Physician Instructions: Evaluate and treat Consult to Physical Therapy Evaluate & Treat Comment: Physician Instructions: Evaluate and Treat Discharge provider: Leyla Sparrow PA-C Summary Hospital Course Discharge Diagnosis: s/p lumbar fusion Hospital Course: Pts hospital course was significant for difficulty with pain control and slow progress with PT. Pt seen on the morning of POD# 3 and at that time plan was to go to SNF on POD# 4. However, per Diamond Simmons CM: found out from P.T. that patient improved today, daughter in for caregiver training, and feels that she can manage home. Asked about home health, does not feel that they need it. Patient needs to void, but ready to go home today Exam Vital Signs (past 8 hours): - 05/19/22 06:02 05/19/22 07:34 05/19/22 07:59 Temperature 97.4 F L 96.5 F L Pulse Rate 78 67 67 Respiratory Rate 20 16 Blood Pressure 110/64 118/67 118/67 Pulse Oximetry 94 97 05/19/22 09:28 Temperature Pulse Rate 64 Respiratory Rate Blood Pressure Pulse Oximetry Oxygen Delivery Method CPAP Oxygen Flow Rate 0 Narrative Exam Narrative: Please see exam note from earlier today. Objective Labs Result Diagrams: 05/17/22 06:17 [facility] Medical History Anxiety Arthritis Chest pain Chronic shortness of breath DDD (degenerative disc disease) Depression (04/2020) GERD (gastroesophageal reflux disease) HLD (hyperlipidemia) HTN (hypertension) Hyperactive Kidney stones OCD (obsessive compulsive disorder) GERARDO on CPAP Osteoarthritis Seasonal allergies Surgical History (Updated 05/17/22 @ 08:42 by Leyla Sparrow PA-C) History of arthroplasty of left knee (10/04/21) History of arthroscopy of left shoulder History of arthroscopy of right shoulder History of esophagogastroduodenoscopy (EGD) History of surgery History of total left hip replacement (~2009) Hx of colonoscopy Hx of hernia repair Status post right partial knee replacement (~2017) Social History household members: family and children Smoking Status: Former smoker alcohol intake: former Discharge Assessment & Plan Assessment and Plan Assessment: s/p L4-5, L5-S1 transforaminal lumbar interbody fusion w/ posterolateral instrumented fusion. Plan of Treatment: D/c home with family. Vistaril for mild pain; hydrocodone/APAP for moderate pain; hydromorphone for severe pain. F/u in office as scheduled. Discharge Plan Discharge Plan Patient Disposition: Home Discharge orders & Medications Prescriptions: New hydrocodone-acetaminophen 10-325 mg Tablet 1 tab PO Q4HR PRN (Reason: Pain, Moderate (4-6)) Qty: 60 0RF hydromorphone 2 mg Tablet 2 mg PO Q6H PRN (Reason: Pain, Severe (7-10)) Qty: 14 0RF docusate sodium 100 mg Capsule 100 mg PO BID PRN (Reason: constipation) Qty: 60 2RF hydroxyzine pamoate 25 mg Capsule 25 mg PO Q4HR PRN (Reason: muscle spasm, mild pain) Qty: 90 1RF Continued albuterol 90 mcg/actuation Aerosol 90 mcg INHALATION Q4H PRN (Reason: Shortness Of Breath) metoprolol succinate 50 mg Tablet Extended Release 24 Hr 50 mg PO DAILY paroxetine HCl 40 mg Tablet 40 mg PO DAILY esomeprazole magnesium [Nexium] 20 mg Capsule,Delayed Release(Dr/Ec) 20 mg PO DAILY cholestyramine (with sugar) 4 gram Powder In Packet 4 g PO DAILY Rx Instructions: administer w/meal; avoid other meds within 1hr before or 4-6hr after dose Discontinued hydrocodone-acetaminophen 5-325 mg Tablet 1 tab PO TID PRN (Reason: Pain) ibuprofen 200 mg Capsule 400 mg PO DAILY PRN (Reason: Pain) acetaminophen 500 mg capsule 500 mg PO Q6H MDD 4000 mg PRN (Reason: pain) Qty: 90 0RF Rx Instructions: 1-2 caps q 6h Follow up/Referrals: Kip Christopher DO [Primary Care Provider] - Seb Ramírez MD [Physician] - As previously scheduled (Follow up w/ VERONICA Wesley on 05/29/2022 @ 1:00 pm at [facility] in [place].) Diet/Activity/Treatments Diet: Diet as Tolerated Activity: No bending more than 90 degrees at the waist. No twisting at the waist. No lifting more than 20 pounds. Cold/Heat Therapy: Ice to back as needed for pain. Skin/Wound/Dressing Care Report to your healthcare provider any signs of infection, such as:: chills, fever, night sweats, unusual drainage and unusual redness Dressing: May shower; keep dressing as dry as possible. May remove and replace with clean, dry gauze if it becomes wet inside. No bathing or otherwise soaking incisions. Do not place any creams, lotions, or ointments on incisions. Visit Report/Discharge Packet Instructions: DI for Heart Failure, DI for Prescription Opioid Use, DI for Transforaminal Lumbar Interbody Fusion Stand Alone Forms: Surgery Discharge Discharge Data Primary Care Provider: Kip Christopher VTE Deep Vein Thrombosis/Pulmonary Embolism Present on Admission: No
--- NOTE | 2022-05-19 15:14 | PT-IP ANOTE ---
Pt declined pm tx, stated waiting for nursing to come in with DC paperwork, daughter in room. Daughter and pt stated pt has been up to bathroom couple of times since am tx and wants energy for mobility for transportation home. They both stated feel confident able to complete all needed and no further needs from FOLDING MACHINE TENDER and aware HHPT being set up to work with him at home. Pt was not seen for PT this pm, will defer further assessment to HHPT, see prior this am tx for details on mobility.
--- NOTE | 2022-05-19 16:45 | PC.NURSE ---
Discharge Note Patient A&O, VSS, RA, no complaints of pain/discomfort. Discharge information reviewed with patient, all questions/concerns addressed. Dressing changed prior to discharge. PIV discontinued. Patient able to dress self and pack all belongings. Patient reminded to belt picker prescriptions on way home from preferred pharmacy. Patient taken down via wheelchair to POV.
== END 2022-05-19 15:00 | disposition home or self-care (01) | DRG 455 ==
PROVIDERS: Admitting Provider Orthopaedic Surgery Orthopaedic Surgery of the Spine; PCP Family Medicine; Referring Provider Orthopaedic Surgery Orthopaedic Surgery of the Spine; Visit Provider Orthopaedic Surgery Orthopaedic Surgery of the Spine
PROC: 0SG00AJ Fusion of Lumbar Vertebral Joint with Interbody Fusion Device, Posterior Approach, Anterior Column, Open Approach (ICD-10-PCS; principal; 2022-05-16 07:45)
DX: M48.062 Spinal stenosis, lumbar region with neurogenic claudication (principal); M43.17 Spondylolisthesis, lumbosacral region; M48.07 Spinal stenosis, lumbosacral region; E88.2 Lipomatosis, not elsewhere classified; M47.816 Spondylosis without myelopathy or radiculopathy, lumbar region; G89.18 Other acute postprocedural pain; I10 Essential (primary) hypertension; F41.9 Anxiety disorder, unspecified; F32.A Depression, unspecified; K21.9 Gastro-esophageal reflux disease without esophagitis; G47.33 Obstructive sleep apnea (adult) (pediatric); Z20.822 Contact with and (suspected) exposure to COVID-19; Z87.891 Personal history of nicotine dependence
CPT/HCPCS: 00670; 36415; 72100; 76000; 82962; 85014; 85018; 87635; 94660; 97116; 97162; 97166; 97530; 97535; C9803; C1831; C9290; J0131; J0171; J0690; J1170; J2405; J2704; J3410

== ENCOUNTER → 2023-03-17 08:45 | Outpatient (CLI) | payer MEDICARE, OTHER, SELFPAY ==
[2022-05-16 14:12] VITALS: BMI 34.4
--- NOTE | 2023-03-17 | DI.NM.S_ITS ---
PROCEDURE: NM BONE 3 PHASE RADIOPHARMACEUTICAL: 21.2 mCi Tc-99m MDP IV. INDICATIONS: Presence of left artificial knee joint TECHNIQUE: Multiple bone scintigrams were obtained after intravenous injection of Tc-99m MDP, including flow, blood pool, and delayed images centered to the region of interest. COMPARISON: [facility] [place], CR, XR KNEE ARTHRITIC SERIES LT, 05/27/2021, 15:24. [facility] [place], CR, XR KNEE 4+ VIEWS LEFT, 11/11/2021, 14:27. [facility] [place], CR, XR KNEE 4+ VIEWS LEFT, 03/04/2023, 10:49. FINDINGS: Comparison x-rays demonstrate left knee total arthroplasty. In addition, there is right knee medial hemiarthroplasty. A triple phase bone scan was obtained, including flow, blood pool and delayed images centered to the knees. The flow and blood pool images demonstrate subtle increased activity around left knee prosthesis. Delayed images demonstrate mildly increased activity around left knee prosthesis, as well as the right knee prosthesis. IMPRESSION: 1. Left knee total arthroplasty and right knee medial hemiarthroplasty. There is low-level increased delayed uptake around the left knee prosthesis. A similar finding is present in the medial aspect of the right right knee. The findings are most likely secondary to postsurgical change. No definitive scintigraphic findings to suggest prosthesis loosening. 2. Mildly hyperemia with increased flow and blood pool uptake around left knee, which may be associated with soft tissue inflammation or infection. Dictated by: Howie John M.D. on 03/17/2023 at 13:38 Approved by: Howie John M.D. on 03/18/2023 at 9:37
== END ==
PROVIDERS: PCP Family Medicine; Referring Provider Orthopaedic Surgery; Visit Provider Orthopaedic Surgery
DX: Z09 Encounter for follow-up examination after completed treatment for conditions other than malignant neoplasm (principal); Z96.652 Presence of left artificial knee joint
CPT/HCPCS: 78315; A9503

== ENCOUNTER → 2023-04-03 14:52 | Outpatient (CLI) | payer MEDICARE, OTHER, SELFPAY ==
[2022-05-16 14:12] VITALS: BMI 34.4
--- NOTE | 2023-04-09 09:52 | P.PFT.S_ITS ---
Pulmonary Function Test Referral & Results Date Patient Seen: 04/03/23 Results: The spirometry demonstrates an FVC of 4.09 L which is 91% of predicted. The FEV1 was measured at 2.69 L which is 81% of predicted. The FEV1/FVC ratio was 66 which is 88% of predicted. Following the administration of bronchodilator there was no notable change. Lung volumes show an SVC of 5.0 L which is 109% of predicted. The diffusing capacity was measured at 24.38 which is 75% of predicted. No hemo globin value was provided, so no correction for potential anemia could be made, if appropriate. The maximum voluntary ventilation was probably normal Interpretation: This study demonstrates possibly mild obstructive lung disease based on reduction FEV1 although FEV1/FVC ratio is preserved and there is no evidence of benefit following bronchodilator administration. However shape a flow volume loop does support the presence of some degree of obstructive lung disease Lung volumes are normal There is a minimal reduction diffusing capacity suggesting the possibility of disease at the capillary alveolar level Clinical correlation suggested
--- OUTSIDE RECORDS SUMMARY | 2023-08-28 15:03 | XMS_ITS | Referral Summary ---
Author Name Unknown Organization [facility] Address [address] [place] [address] Care Team Providers Care Addictions Recovery Specialist Name Role Phone Kip Christopher Primary Care Provider [phone] Reason for Referral * Rehabilitation - Outpatient (Routine) - Closed Specialty Diagnoses / Procedures Referred By Contac t Referred To Contact Diagnoses Chest pain in adult Other nonspecific abnormal finding of lung field Procedures Complete PFT with DLCO Hellen Villegas MD [address] [place] [address] [place] [address] [address] Referral ID Status Reason Start Date Expiration Date Visits Re quested Visits Authorized [id number] Closed 03/11/2023 03/05/2024 1 1 * Diagnostic Imaging (Routine) - Authorized Specialty Diagnoses / Procedures Referred By Contac t Referred To Contact Radiology Diagnoses Chest pain in adult Procedures XR CHEST 2 VIEWS Hellen Villegas MD [address] [place] [address] [place] [address] Referral ID Status Reason Start Date Expiration Date Visits Requested Visits Authorized [id number] Authorized Specialty Services Required 03/11/2023 03/05/2024 1 1 * Diagnostic Imaging (Routine) - Authorized Specialty Diagnoses / Procedures Referred By Contac t Referred To Contact Radiology Diagnoses Shortness of breath Procedures ECHOCARDIOGRAM STRESS ISCHEMIA Hellen Villegas MD [address] [place] [id number] [facility] Echocardiography [address] [place] [address] Referral ID Status Reason Start Date Expiration Date Visits Requested Visits Authorized [id number] Authorized Specialty Services Required 03/11/2023 03/05/2024 1 1 * Diagnostic Imaging (Urgent) - Authorized Specialty Diagnoses / Procedures Referred By Az toney Referred To Contact Radiology Diagnoses Typical atrial flutter ([facility]) Procedures ECHOCARDIOGRAM COMPLETE Hellen Villegas MD [address] [place] [address] [facility] Echocardiography [address] [place] [address] Referral ID Status Reason Start Date Expiration Date Visits Requested Visits Authorized [id number] Authorized Specialty Services Required 03/11/2023 03/05/2024 1 1 Reason for Visit * Reason Comments Heart Problem * Evaluate and Treat (Routine) - Closed Specialty Diagnoses / Procedures Referred By Az toney Referred To Contact Cardiology Diagnoses Unspecified atrial flutter Procedures SC OFFICE/OUTPATIENT ESTABLISHED MOD MDM 30-39 MIN Ayaan Ballard [id number] [place] [address] [facility] [address] [place] [address], [address] [address] Referral ID Status Reason Start Date Expiration Date Visits Re quested Visits Authorized [id number] Closed 03/02/2023 02/25/2024 1 1 Encounter Details Date Type Department Care Team Description 03/11/2023 Office Visit [facility] Cardiology [address], [address] [phone] Hellen Villegas MD [address] [place] [address] [address] [place], [place] [id number] Typical atrial flutter (CMS-HCC) (Primary Dx); Shortness of breath; Chest pain in adult; Essential hypertension; Other nonspecific abnormal finding of lung field Allergies Active Allergy Reactions Severity Noted Date Comments Nitroglycerin 03/11/2023 Low pulse Oxycodone Other (see comments) 03/11/2023 Severe hallucinations documented as of this encounter (statuses as of 03/24/2023) Medications Medication Sig Dispensed Refills Start Date End Date Status buPROPion SR (WELLBUTRIN SR) 150 mg 12 hr tablet Take 1 tablet (150 mg total) by mouth 2 (two) times a day 0 02/16/2023 Active cholestyramine (QUESTRAN) 4 gram packet Take 1 packet by mouth daily 0 02/06/2023 Active cimetidine (TAGAMET) 400 mg tablet Take 1 tablet (400 mg total) by mouth as needed 0 12/28/2022 Active HYDROcodone-aceta minophen (NORCO) 5-325 mg Take 1 tablet by mouth every 8 (eight) hours as needed 0 02/18/2023 Active metoprolol succinate XL (TOPROL-XL) 50 mg 24 hr tablet Take 1 tablet (50 mg total) by mouth daily 0 01/07/2023 Active nortriptyline (PAMELOR) 25 mg capsule Take 1 capsule (25 mg total) by mouth as needed 0 12/28/2022 Active PARoxetine (PAXIL) 40 mg tablet Take 1 tablet (40 mg total) by mouth daily 0 02/06/2023 Active apixaban (Eliquis) 5 mg tablet Take 1 tablet (5 mg total) by mouth 2 (two) times a day 60 tablet 11 03/11/2023 03/10/2024 Active Eliquis 5 mg tablet Take 1 tablet (5 mg total) by mouth 2 (two) times a day 0 02/26/2023 03/11/2023 Discontinued (Reorder) apixaban (Eliquis) 5 mg tablet Take 1 tablet (5 mg total) by mouth 2 (two) times a day 60 tablet 11 03/11/2023 03/11/2023 Discontinued (Reorder) documented as of this encounter (statuses as of 03/24/2023) Active Problems No known active problems documented as of this encounter (statuses as of 03/24/2023) Social History Tobacco Use Types Packs/Day Years Used Date Smoking Tobacco: Former Cigarettes Smokeless Tobacco: Never Alcohol Use Standard Drinks/Week Comments Not Currently 0 (1 standard drink = 0.6 oz pur e alcohol) Sex Assigned at Date Recorded Not on file Job Start Date Occupation Industry Not on file Not on file Not on file documented as of this encounter Last Filed Vital Signs Vital Sign Reading Time Taken Comments Blood Pressure 156/76 03/11/2023 10:15 AM PDT Pulse 80 03/11/2023 10:15 AM PDT Temperature - - Respiratory Rate - - Oxygen Saturation 94% 03/11/2023 10:15 AM PDT Inhaled Oxygen Concentration - - Weight 107 kg (234 lb 12.8 oz) 03/11/2023 10:15 AM PDT Height - - Body Mass Index - - documented in this encounter Progress Notes * Hellen Villegas MD - 03/11/2023 10:30 AM PDT [employer] Phone number: Fax number: [employer] Phone number: Fax number: [employer] Phone number: Fax number: [email or web address] Hellen Villegas MD - 03/11/2023 10:30 AM PDT Subjective Patient ID: Luis Ramos is a 67 y.o. male that presents today for had concerns including HeartProblem. HPI: 67-year-old male patient with a past medical history of anxiety, bilateral knee replacements, hip replacement and spinal hardware who presents to the cardiology clinic for an abnormal EKG. Patient is accompanied today by his daughter, Sonia. Patient reports that over Memorial Day he became sick with an upper respiratory tract infection. He then presented to his primary care provider who obtained an EKG which was concerning for atrial flutter. Patient reports that his primary care provider started him on Eliquis after diagnosing him with atrial flutter however the Eliquis cost $440 a month. He would not like to be on warfarin secondary to how time-consuming the management is. Patient r eports that for as long as he can remember he has had significant shortness of breath which is constant but has worsened over the past 2 weeks. During these episodes of shortness of breath he does endorse chest tightness which resolves once he sits down and relaxes. He also endorses having increased dizziness/lightheadedness over the past 3-6 months. It occurs spontaneously and again resolves when he sits down and rests. Patient also endorses having pinning in his ears 2 times a day for the past 10 years. He denies any chest pain, palpitations or swelling at his ankles bilaterally. He does endorse having occasional swelling in his left knee which is the most recent knee to be replaced. Patient's brother was recently diagnosed with atrial fibrillation requiring a cardioversion. Patient lives in [place] with his daughter and grandsons. He does endorse drinking 2-3 cups of coffee daily.Patient reports that his blood pressure at home is closer to 140/80 and that he has been taking metoprolol succinate for many years. PROBLEM LIST: # Atrial flutter # HTN Social History Socioeconomic History Marital status: Tobacco Use Smoking status: Former Types: Cigarettes Smokeless tobacco: Never Substance and Sexual Activity Alcohol use: Not Currently Drug use: Never Allergies Allergen Reactions Nitroglycerin Low pulse Oxycodone Other (see comments) Severe hallucinations Current Medication List Sig buPROPion SR (WELLBUTRIN SR) 150 mg 12 hr tablet Take 1 tablet (150 mg total) by mouth 2 (two) times a day cholestyramine (QUESTRAN) 4 gram packet Take 1 packet by mouth daily cimetidine (TAGAMET) 400 mg tablet Take 1 tablet (400 mg total) by mouth as needed HYDROcodone-acetaminophen (NORCO) 5-325 mg Take 1 tablet by mouth every 8 (eight) hours as needed metoprolol succinate XL (TOPROL-XL) 50 mg 24 hr tablet Take 1 tablet (50 mg total) by mouth daily nortriptyline (PAMELOR) 25 mg capsule Take 1 capsule (25 mg total) by mouth as needed PARoxetine (PAXIL) 40 mg tablet Take 1 tablet (40 mg total) by mouth daily Eliquis 5 mg tablet (Discontinued) Take 1 tablet (5 mg total) by mouth 2 (two) times a day apixaban (Eliquis) 5 mg tablet Take 1 tablet (5 mg total) by mouth 2 (two) times a day apixaban (Eliquis) 5 mg tablet (Discontinued) Take 1 tablet (5 mg total) by mouth 2 (two) times a day Review of Systems Constitutional: Negative for unexpected weight change. Respiratory: Positive for shortness of breath. Negative for chest tightness. Cardiovascular: Positive for chest pain and leg swelling. Negative for palpitations. Gastrointestinal: Negative for blood in stool. Endocrine: Negative for polydipsia. Genitourinary: Negative for hematuria. Musculoskeletal: Negative for joint swelling. Skin: Negative for rash. Neurological: Positive for dizziness and light-headedness. Hematological: Does not bruise/bleed easily. Psychiatric/Behavioral: The patient is nervous/anxious. Objective BP (!) 156/76 (BP Location: Left arm, Patient Position: Sitting) Pulse 80 Wt 107 kg SpO2 94% Physical Exam: General appearance: No apparent distress, well-nourished, pleasant, cooperative HEET: Normocephalic atraumatic, no scleral icterus, tongue midline, mucous membranes moist Neck: supple Cardiovascular: RRR, normal S1 and normal S2, no murmurs/ rubs/gallops, PMI nondisplaced, no JVD, no peripheral edema Respiratory: Good aeration, crackles at the right lung base Abdomen: Soft, nontender, nondistended, + bowel sounds Neuro: Alert, no facial droop, tongue midline, no gross motor deficits Psych: appropriate affect Skin: no rashes on face, neck, and lower extremities EKG 03/11/2023 : Normal sinus rhythm, rate 81 EKG 02/26/2023 : Atrial flutter with well controlled rate Labs 03/02/2023: sodium 142, potassium 4.5, chloride 102, BUN 12, creatinine 1.02, triglycerides 182, HDL 34, LDL 83, total cholesterol 148 Assessment/Plan Comments: 1. Typical atrial flutter (CMS-HCC) ECG 12 Lead (Clinic - Same Day), ECHOCARDIOGRAM COMPLETE 2. Shortness of breath ECHOCARDIOGRAM STRESS ISCHEMIA 3. Chest pain in adult XR CHEST 2 VIEWS, Complete PFT with DLCO 4. Essential hypertension Basic metabolic panel, Complete blood count without diff 5. Other nonspecific abnormal finding of lung field Complete PFT with DLCO # Atrial flutter with adequate rate control diagnosed on 02/26/2023 in the setting of URI symptoms. Patient was asymptomatic with atrial flutter and was on metoprolol (chronic med). Patient educated about his condition. Plan: - Continue metoprolol XL 50mg daily - Continue eliquis 5mg bid. 30 day coupon card, patient assistance program application, and [employer] pharmacy information given to the patient - Echo to assess cardiac structure and function - Stress echo. Hold metoprolol the morning of stress test. - Re-discuss atrial flutter ablation at next visit # Chronic dyspnea: crackles at right lung base. - Chest XR - PFTs # HTN: as above F/U in 3 months with echo, stress echo, chest XR, and PFTs Dr. Gely Benedict was present during parts of the visit with the patient and myself, to obtain preliminary history and to familiarize with the Plan of Care (POC) and Medical Decision Making (MDM) for any possible future visits and care. I performed a full history, physical exam, and MDM and then developed POC with the note as above along with my edits. Electronically signed by Hellen Villegas MD 03/11/2023 12:11 PM documented in this encounter Plan of Treatment Upcoming Encounters Date Type Specialty Care Team Description 06/11/2023 Office Visit Cardiology Hellen Villegas MD [address] [place] [address] [place] [id number] Scheduled Orders Name Type Priority Associated Diagnoses Orde r Schedule ECHOCARDIOGRAM COMPLETE Imaging Urgent (Imaging Only) Typical atrial flutter (CMS-HCC) Expected: 03/11/2023, Expires: 03/11/2025 ECHOCARDIOGRAM STRESS ISCHEMIA Imaging Routine Shortness of breath Expected: 03/11/2023, Expires: 03/11/2025 XR CHEST 2 VIEWS Imaging Routine Chest pain in adult Expected: 03/11/2023, Expires: 06/11/2024 Complete PFT with DLCO PFT Routine Chest pain in adult Other nonspecific abnormal finding of lung field 1 Occurrences starting 03/11/2023 until 03/11/2024 Basic metabolic panel Lab Routine Essential hypertension Expected: 06/11/2023, Expires: 09/10/2024 Complete blood count without diff Lab Routine Essential hypertension Expected: 06/11/2023, Expires: 09/10/2024 documented as of this encounter Procedures Procedure Name Priority Date/Time Associated Diagnosis Comments ECG 12-LEAD Routine 03/11/2023 10:21 AM PDT Typical atrial flutter (CMS-HCC) documented in this encounter Results * ECG 12 Lead (Clinic - Same Day) (03/11/2023 10:21 AM PDT) HR 81 bpm [facility] IECG RR 741 ms [facility] IECG SC 183 ms [facility] IECG QRSD 106 ms [facility] IECG QT 399 ms [facility] IECG QTc 464 ms [facility] IECG QRS 69 deg [facility] IECG T 60 deg [facility] IECG Impression - NORMAL ECG - [facility] IECG Impression Sinus rhythm [facility] IECG Impression No previous ECG available for comparison [facility] IECG 03/11/2023 10:2 1 AM PDT Hellen Villegas MD ECG ORDERABLES [facility] IECG documented in this encounter Visit Diagnoses Diagnosis Typical atrial flutter (CMS-HCC)- Primary Shortness of breath Chest pain in adult Essential hypertension Unspecified essential hypertension Other nonspecific abnormal finding of lung field documented in this encounter Care Teams Addictions Recovery Specialist Relationship Specialty Start Date End Date Kip Christopher [address] [place], [place] [phone] PCP - General Family Medicine 03/02/23 documented as of this encounter
== END ==
PROVIDERS: PCP Family Medicine; Referring Provider Internal Medicine Cardiovascular Disease; Visit Provider Internal Medicine Cardiovascular Disease
DX: R91.8 Other nonspecific abnormal finding of lung field (principal); R07.9 Chest pain, unspecified; Z87.891 Personal history of nicotine dependence; J98.8 Other specified respiratory disorders
CPT/HCPCS: 94060; 94726; 94729